=== PATIENT | female | born 1945 | race Caucasian/White ===

== ENCOUNTER 2019-01-23 08:40 | Emergency (ER) | payer OTHER, BC ==
[2019-01-23 08:45] VITALS: BMI 43.9
[2019-01-23] MEDS ORDERED: DIPHTH,PERTUSS(ACELL),TET 0.5 ML DISP.SYRIN IM ONE ×2 (09:49→09:57)
[2019-01-23] MEDS ORDERED: BACITRACIN 0.9 GM PACKET ONE (10:25)
[2019-01-23 10:39] LABS: BASO % 0.8 % (0-2.0); EOS % 1.8 % (0-4.5); HEMATOCRIT 38.7 % (32.4-45.2); HEMOGLOBIN 13.1 GM/dL (10.7-15.3); LYMPH % 11.7 % (8-40); MCHC 33.8 g/dl (32.0-36.0); MEAN CELL VOLUME 94.8 fl (80-96); MEAN PLT VOLUME 7.9 fl (7.5-11.1); MONO % 9.5 % (3.8-10.2); NEUT % 76.2 % (42.8-82.8); PLATELET COUNT 292 K/MM3 (134-434); RBC 4.08 M/mm3 (3.60-5.2); RDW 15.1 % (11.6-15.6); WHITE BLOOD COUNT 8.9 K/mm3 (4.0-10.0)
[2019-01-23 11:03] LABS: ALBUMIN 3.5 g/dl (3.4-5.0); ALK PHOS 133 U/L (45-117); ANION GAP 7 MMOL/L (8-16); BILIRUBIN,TOTAL 0.3 mg/dL (0.2-1); BLOOD UREA NITROGEN 14 mg/dL (7-18); CALCIUM 9.1 mg/dL (8.5-10.1); CHLORIDE 105 mmol/L (98-107); CO2 28 mmol/L (21-32); CREATININE 0.9 mg/dL (0.55-1.3); GLUCOSE,RANDOM 105 mg/dL (74-106); POTASSIUM 4.3 mmol/L (3.5-5.1); SGOT/AST 17 U/L (15-37); SGPT/ALT 23 U/L (13-61); SODIUM 139 mmol/L (136-145); TOT PROT 6.9 g/dl (6.4-8.2)
--- NOTE | 2019-01-23 11:21 | PDOC ---
History of Present Illness - General Chief Complaint: Wound Stated Complaint: EDEMA Time Seen by Provider: 01/23/19 08:55 History Source: Patient Exam Limitations: No Limitations - History of Present Illness Initial Comments: 01/23/19 11:07 73 yo F with h/o venous stasis varicose veins, h/o intermittent cellulitis here with concerns for cat bite or scratch happened day prior. state here right lower leg had some redness prior to getting bit or scratched. then yesterday states lost her footing accidently stepped on cat, and subsequently was bitten or scratched unsure of which. no f/c has been oozing clear fluid since as legs are chornically swollen. no pain. no redness spreading. states overall coloration of skin hasn't change post scratch and it was red prior. pcp dr hilton, pt tried to call but didnt get a call back. Past History - Past Medical History Allergies/Adverse Reactions: Allergies Allergy/AdvReac Type Severity Reaction Status Date / Time codeine [Codeine] AdvReac Mild GI UPSET Verified 01/23/19 08:46 Home Medications: Ambulatory Orders Amoxicillin/Potassium Clav [Augmentin 875-125 Tablet] 1 each PO BID #14 tablet 01/23/19 Ibuprofen 600 mg PO PRN 01/23/19 COPD: Yes CHF: No - Surgical History Abdominal Surgery: Yes (non-cancerous tumo removed) Appendectomy: Yes Cholecystectomy: Yes - Immunization History Immunization Up to Date: Yes - Suicide/Smoking/Psychosocial Hx Smoking Status: Yes Smoking History: Never smoked Have you smoked in the past 12 months: Yes Number of Cigarettes Smoked Daily: 20 'Breaking Loose' booklet given: 09/16/12 Hx Alcohol Use: Yes (are occassion) Drug/Substance Use Hx: No Substance Use Type: None Hx Substance Use Treatment: No Review of Systems - Review of Systems Respiratory: No: Cough, Orthopnea Cardiac (ROS): No: Chest Pain Integumentary: Yes: Erythema, Lesions, Other. No: Bruising Neurological: No: Headache, Numbness All Other Systems: Reviewed and Negative *Physical Exam - Vital Signs Last Vital Signs Temp Pulse Resp BP Pulse Ox 97.6 F 76 20 139/75 96 01/23/19 08:41 01/23/19 08:41 01/23/19 08:41 01/23/19 08:41 01/23/19 08:41 - Physical Exam Comments: 01/23/19 11:10 awake alert lungs clear bilaterally heart rrr no mrg abd soft nt nd.ext wwp no edema. no calf tenderness. skin right lower anterior christensen with mild erythema. no warmth. clear edematous oozing from small puncture wound on right side calf. 2 + dp / pt pulses. no streaking. no fluctuance, no crepitus ED Treatment Course - LABORATORY CBC & Chemistry Diagram: 01/23/19 10:15 01/23/19 10:15 - ADDITIONAL ORDERS Additional order review: Laboratory Results 01/23/19 10:15 Sodium 139 Potassium 4.3 Chloride 105 Carbon Dioxide 28 Anion Gap 7 L BUN 14 Creatinine 0.9 Creat Clearance w eGFR 61.21 Random Glucose 105 Calcium 9.1 Total Bilirubin 0.3 AST 17 ALT 23 Alkaline Phosphatase 133 H Total Protein 6.9 Albumin 3.5 01/23/19 10:15 RBC 4.08 MCV 94.8 MCHC 33.8 RDW 15.1 MPV 7.9 Neutrophils % 76.2 Lymphocytes % 11.7 D Monocytes % 9.5 Eosinophils % 1.8 Basophils % 0.8 - Medications Given in the ED: ED Medications Discontinued Medications Generic Name Dose Route Start Last Admin Trade Name Freq PRN Reason Stop Dose Admin Diphtheria/Tetanus/Acell Pertussis 0.5 ml 01/23/19 09:49 01/23/19 10:16 Boostrix - IM 01/23/19 09:50 0.5 ml .ONCE ONE Administration Medical Decision Making - Medical Decision Making 01/23/19 11:21 pt with cat bit, some erythema, with chronic skin changes that was there prior. draining clear edema fluid. gus start on augmentin, dc fu with dr spear. called dr spear to communicate, awaiting call back. 01/23/19 11:34 d/w nurse covering for dr spear. scheduled pt for followup Friday01/26/19 at 10:45 am *DC/Admit/Observation/Transfer Diagnosis at time of Disposition: Cat bite - Discharge Dispostion Disposition: HOME Condition at time of disposition: Good - Prescriptions Prescriptions: Amoxicillin/Potassium Clav [Augmentin 875-125 Tablet] 1 each PO BID #14 tablet - Referrals Referrals: Gregg Spear MD [Primary Care Provider] - - Patient Instructions Printed Discharge Instructions: DI for Edema Due to Venous Stasis, DI for Animal Bites Additional Instructions: you should elevate your legs asmuch as possible. use compression dressing on right leg, change daily. you shoul also use compression stockings. you will take augmentin ( amoxicillin - clavulinic acid) twice daily for one week to prevent infection from the cat bite. return for fever , worsening or spreading redness, thick yellow drainage or any concerns. you should follow up with dr Spear Friday at 10:45 am. We spoke to the nurse at their office to confirm. call to change time if this does not work for you return for any problems or concerns. - Post Discharge Activity
[2019-01-23] MEDS ORDERED: AMOX TR/POT CLAV 875MG/125MG TABLETS (FP) PO ONE (11:33)
[2019-01-23] MEDS ORDERED: AMOX TR/POT CLAV 875MG/125MG TABLETS (FP) ONE (11:36)
[2019-01-23 11:45] VITALS: BP 128/72; PULSE 73; TEMP 98.2
== END 2019-01-23 11:45 | disposition home or self-care (01) ==
LOC: JER 08:40
PROC: 3E0234Z Introduction of Serum, Toxoid and Vaccine into Muscle, Percutaneous Approach (ICD-10-PCS; principal; 2019-01-23)
DX: S81.851A Open bite, right lower leg, initial encounter (principal); W55.01XA Bitten by cat, initial encounter; Y93.89 Activity, other specified; Y92.038 Other place in apartment as the place of occurrence of the external cause; Y99.8 Other external cause status; I87.8 Other specified disorders of veins
CPT/HCPCS: 36415; 80053; 85025; 87040; 90471; 90715; 99282-25

== ENCOUNTER 2019-03-01 17:06 | Emergency (ER) | payer OTHER, BC | END 2019-03-01 20:53 | disposition home or self-care (01) | LOC: JER 17:06 ==

== ENCOUNTER 2019-11-17 23:42 | Emergency (ER) | payer OTHER, BC ==
[2019-11-18 00:15] VITALS: TEMP 97.9; BMI 41.1
--- NOTE | 2019-11-18 01:26 | PDOC ---
History of Present Illness - General Chief Complaint: Shortness of Breath Stated Complaint: SOB, HEADACHE, SWELLING IN FT Time Seen by Provider: 11/18/19 00:30 - History of Present Illness Initial Comments: HPI: 74yo F with PMH of BLE lymphedema, cellulitis, COPD, peripheral neuropathy presenting with worsening leg edema and shortness of breath. Patient states she has swollen legs at baseline, but this has worsened. She does not feel shortness of breath at rest, but will upon exertion. She now feels winded upon walking to the kitchen from her room which is unusual for her. Denies orthopnea or paroxysmal nocturnal dyspnea. Quit smoking several years ago. Denies cough. No hemoptysis, no recent surgical history, no recent immobilization, no hormone use, no history of DVT or PE. No fevers or chils. PCP: none (used to see Dr. Kearns) ROS: Constitutional: no fever, no chills HEENT: no throat pain, no dysphagia Cardiovascular: no chest pain, no palpitations Respiratory: no cough, +shortness of breath Gastrointestinal: no abdominal pain, no nausea Genitourinary: no dysuria, no hematuria Musculoskeletal: no myalgia, no arthralgia Skin: no rash, +edema Neurologic: no headache, no weakness Psych: no agitation, no anxiety PE: General: Awake, alert, and fully oriented, morbidly obese, in no acute distress Head: No signs of trauma Eyes: EOMI, sclera anicteric ENT: Moist mucus membranes Neck: Normal ROM, supple Lungs: Lungs clear, Normal breath sounds Cardio: Regular rhythm, S1 and S2 present Abdomen: Soft, nontender. No guarding, no rebound, no masses Extremities: Normal range of motion, Distal pulses present, 4+ pitting edema in lower extremities SKIN: Warm, Dry, normal turgor Neurologic: Cranial nerves II through XII grossly intact. Normal speech ED Course/MDM: DDX including but not limited to CHF, ACS, PE, PNA, anemia, metabolic derangement Labs, EKG, CXR EKG: rate 74, Qtc 435, NSR CBC WBC 8.6 K/mm3 (4.0-10.0) 11/18/19 01:30 RBC 4.20 M/mm3 (3.60-5.2) 11/18/19 01:30 Hgb 13.1 GM/dL (10.7-15.3) 11/18/19 01:30 Hct 39.4 % (32.4-45.2) 11/18/19 01:30 MCV 93.9 fl (80-96) 11/18/19 01:30 MCH 31.2 pg (25.7-33.7) 11/18/19 01:30 MCHC 33.2 g/dl (32.0-36.0) 11/18/19 01:30 RDW 14.8 % (11.6-15.6) 11/18/19 01:30 Plt Count 287 K/MM3 (134-434) 11/18/19 01:30 MPV 8.1 fl (7.5-11.1) 11/18/19 01:30 Absolute Neuts (auto) 5.4 K/mm3 (1.5-8.0) 11/18/19 01:30 Neutrophils % 62.7 % (42.8-82.8) 11/18/19 01:30 Lymphocytes % 24.7 % (8-40) 11/18/19 01:30 Monocytes % 9.6 % (3.8-10.2) 11/18/19 01:30 Eosinophils % 1.9 % (0-4.5) 11/18/19 01:30 Basophils % 1.1 % (0-2.0) 11/18/19 01:30 Nucleated RBC % 0 % (0-0) 11/18/19 01:30 No leukocytosis CMP Sodium 140 mmol/L (136-145) 11/18/19 01:30 Potassium 4.3 mmol/L (3.5-5.1) 11/18/19 01:30 Chloride 108 mmol/L (98-107) H 11/18/19 01:30 Carbon Dioxide 27 mmol/L (21-32) 11/18/19 01:30 Anion Gap 5 MMOL/L (8-16) L 11/18/19 01:30 BUN 27.2 mg/dL (7-18) H 11/18/19 01:30 Creatinine 1.2 mg/dL (0.55-1.3) 11/18/19 01:30 Est GFR (CKD-EPI)AfAm 51.20 11/18/19 01:30 Est GFR (CKD-EPI)NonAf 44.17 11/18/19 01:30 Random Glucose 122 mg/dL (74-106) H 11/18/19 01:30 Calcium 9.0 mg/dL (8.5-10.1) 11/18/19 01:30 Total Bilirubin 0.2 mg/dL (0.2-1) 11/18/19 01:30 AST 16 U/L (15-37) 11/18/19 01:30 ALT 24 U/L (13-61) 11/18/19 01:30 Alkaline Phosphatase 119 U/L (45-117) H 11/18/19 01:30 Creatine Kinase 106 U/L (26-192) 11/18/19 01:30 Troponin I < 0.02 ng/ml (0.00-0.05) 11/18/19 01:30 B-Natriuretic Peptide 108.2 pg/ml (5-450) 11/18/19 01:30 Total Protein 6.8 g/dl (6.4-8.2) 11/18/19 01:30 Albumin 3.4 g/dl (3.4-5.0) 11/18/19 01:30 Electrolytes unremarkable Normal Cr No transaminitis Tpn undetectable Normal BNP Plan for admission; observation is appropriate as patient with suspected anginal equivalent with nondiagnostic initial evaluation requiring further immediate evaluation such as stress testing, imaging, and repeat laboratory testing to clarify diagnosis Patient is of sound mind and has capacity to make decisions. Benefits/risks explained to patient and they voiced understanding. Patient decided to leave against medical advice stating that she wanted to go home. Planning to call her primary care office in the morning. Signed AMA form which was witnessed by nina. 11/18/19 03:12 Past History - Past Medical History Allergies/Adverse Reactions: Allergies Allergy/AdvReac Type Severity Reaction Status Date / Time codeine [Codeine] AdvReac Mild GI UPSET Verified 11/18/19 00:04 COPD: Yes CHF: No - Surgical History Abdominal Surgery: Yes (non-cancerous tumo removed) Appendectomy: Yes Cholecystectomy: Yes - Immunization History Immunization Up to Date: Yes - Psycho Social/Smoking Cessation Hx Smoking Status: Yes Smoking History: Never smoked Have you smoked in the past 12 months: No Number of Cigarettes Smoked Daily: 20 'Breaking Loose' booklet given: 09/16/12 Hx Alcohol Use: No Drug/Substance Use Hx: No Substance Use Type: None Hx Substance Use Treatment: No *Physical Exam - Vital Signs Last Vital Signs Temp Pulse Resp BP Pulse Ox 97.9 F 81 18 151/78 97 11/18/19 00:04 11/18/19 00:04 11/18/19 00:04 11/18/19 00:04 11/18/19 00:47 ED Treatment Course - LABORATORY CBC & Chemistry Diagram: 11/18/19 01:30 11/18/19 01:30 Discharge - Discharge Information Problems reviewed: Yes Clinical Impression/Diagnosis: Dyspnea on exertion Condition: Stable Disposition: AGAINST MEDICAL ADVICE - Follow up/Referral Referrals: [facility] [Provider Group] - Patient Discharge Instructions Patient Printed Discharge Instructions: DI for Shortness of Breath Additional Instructions: You came into the emergency department for chest pain. We performed blood work, an EKG, and an Xray which were within normal limits. Follow-up with your primary care doctor in the next 2-3 days to discuss this ED visit and to further evaluate your symptoms. Call and make an appointment at the number provided. Your workup is not complete until you do so. As discussed you may have undiagnosed illness or medical diagnosis that if left untreated can lead to multiple complications including, but not limited to permanent disability and . Should you reconsider you should return to the emergency department for evaluation. Call for emergency medicine services or go to the emergency room right away if you have symptoms of a heart attack, including: Chest pain, which may feel like a crushing weight A sense of fullness, squeezing, or pressure in the chest Rapid, irregular heartbeat Pain, tingling or numbness in the left shoulder and arm, the neck or jaw, or the right arm Sweating Nausea or vomiting Lightheadedness, weakness, or fainting Shortness of breath If you think you have an emergency, call for medical help right away. - Post Discharge Activity
[2019-11-18 01:51] LABS: BASO % 1.1 % (0-2.0); EOS % 1.9 % (0-4.5); HEMATOCRIT 39.4 % (32.4-45.2); HEMOGLOBIN 13.1 GM/dL (10.7-15.3); LYMPH % 24.7 % (8-40); MCH 31.2 pg (25.7-33.7); MCHC 33.2 g/dl (32.0-36.0); MEAN CELL VOLUME 93.9 fl (80-96); MEAN PLT VOLUME 8.1 fl (7.5-11.1); MONO % 9.6 % (3.8-10.2); NEUT % 62.7 % (42.8-82.8); PLATELET COUNT 287 K/MM3 (134-434); RDW 14.8 % (11.6-15.6); WHITE BLOOD COUNT 8.6 K/mm3 (4.0-10.0)
--- NOTE | 2019-11-18 01:58 | PDOC ---
Documentation entered by Maye Arnold SCRIBE, acting as scribe for Ru Smith MD. Ru Smith MD: This documentation has been prepared by the Catalina garibay Xhesika, SCRIBE, under my direction and personally reviewed by me in its entirety. I confirm that the documentation accurately reflects all work, treatment, procedures, and medical decision making performed by me. Attending Attestation - Resident Resident Name: LeonelaTrice - ED Attending Attestation I have performed the following: I have examined & evaluated the patient, The case was reviewed & discussed with the resident, I agree w/resident's findings & plan, Exceptions are as noted - HPI HPI: 11/18/19 01:44 The patient is a 74 year old female, with a significant PMH of venous stasis varicose veins, intermittent cellulitis, COPD, peripheral neuropathy, who presents to the emergency department for 3 weeks of lower extremity swelling and SOB. Pt reports dyspnea on exertion and feels winded while walking to the kitchen. The patient denies chest pain, headache and dizziness. Denies fever, chills, cough, nausea, vomiting, diarrhea and constipation. Denies dysuria, frequency, urgency and hematuria. Allergies: NKDA - Physicial Exam PE: 11/18/19 01:56 Patient is awake and alert, morbidly obese, in no significant distress Normocephalic and atraumatic PERRLA, EOMI No JVD CTA, distant breath sounds bilaterally RRR 4 pitting edema of the lower extremities bilaterally with mild extensive erythema+ - Medical Decision Making 11/18/19 01:57 Patient 74-year-old female with history of lymphedema, COPD, peripheral neuropathy presents with worsening lower extremity edema, dyspnea on exertion, weakness, malaise. Differential diagnosis includes acute COPD exacerbation versus CHF versus ACS. Will obtain chest x-ray, EKG, CBC/CMP/cardiac profile. Will reassess.
[2019-11-18 02:16] LABS: INR 0.97 (0.83-1.09); PROTHROMBIN TIME (PATIENT) 11.5 SEC (9.7-13.0)
[2019-11-18 02:26] LABS: ALBUMIN 3.4 g/dl (3.4-5.0); BILIRUBIN,TOTAL 0.2 mg/dL (0.2-1); BLOOD UREA NITROGEN 27.2 mg/dL (7-18); CREATININE 1.2 mg/dL (0.55-1.3); POTASSIUM 4.3 mmol/L (3.5-5.1); TOT PROT 6.8 g/dl (6.4-8.2)
[2019-11-18 03:23] VITALS: BP 121/71; PULSE 80
--- NOTE | 2019-11-18 14:13 | EKG ---
Test Reason : Blood Pressure : / mmHG Vent. Rate : 074 BPM Atrial Rate : 074 BPM P-R Int : 164 ms QRS Dur : 082 ms QT Int : 392 ms P-R-T Axes : 045 008 023 degrees QTc Int : 435 ms NORMAL SINUS RHYTHM LOW VOLTAGE QRS BORDERLINE ECG WHEN COMPARED WITH ECG OF 16-SEP-2012 10:47, T WAVE AMPLITUDE HAS DECREASED IN ANTERIOR LEADS Confirmed by EFREM LU MD ([id number]) on 11/18/2019 2:12:53 PM Referred By: Confirmed By:EFREM LU MD
== END 2019-11-18 03:23 | disposition left against medical advice (07) ==
LOC: JER 23:42
DX: R06.09 Other forms of dyspnea (principal); I89.0 Lymphedema, not elsewhere classified; I83.893 Varicose veins of bilateral lower extremities with other complications; J44.9 Chronic obstructive pulmonary disease, unspecified; G62.9 Polyneuropathy, unspecified; Z88.5 Allergy status to narcotic agent
CPT/HCPCS: 36415; 71045-TC-FY; 80053; 82550; 83880; 84484; 85025; 85610; 93005; 93010; 99285-25

== ENCOUNTER 2020-05-15 17:04 | Inpatient (IN) | payer OTHER, BC ==
--- NOTE | 2020-05-15 17:31 | PDOC ---
Rapid Medical Evaluation Time Seen by Provider: 05/15/20 17:30 Medical Evaluation: Allergies Allergy/AdvReac Type Severity Reaction Status Date / Time codeine [Codeine] AdvReac Mild GI UPSET Verified 11/18/19 00:04 05/15/20 17:30 I have performed a brief in-person evaluation of this patient. The patient presents with a chief complaint of:sob x days. Dx w/ pna on cxr w/ wbc 14 and 94% on RA per records from [facility]. H/o COPD. No cough, CP, f/c Pertinent physical exam findings: I have ordered the following:ekg/cxr/labs The patient will proceed to the ED for further evaluation. Discharge Disposition - Diagnosis SOB (shortness of breath) - Referrals Referrals: Giorgio Mueller MD [Primary Care Provider] - - Patient Instructions - Post Discharge Activity
--- NOTE | 2020-05-15 19:06 | PDOC ---
History of Present Illness - General Chief Complaint: Shortness of Breath Stated Complaint: SOB/SENT BY PCP Time Seen by Provider: 05/15/20 17:30 History Source: Patient Exam Limitations: No Limitations - History of Present Illness Initial Comments: 05/15/20 19:02 Mirella Shoemaker is a 74F with PMH COPD not on home O2, chronic lymphedema, peripheral neuropathy on gabapentin, sent from PMD at [facility] for evaluation of PNA with WBC 14 and hypoxia. Two days ago patient reports that she was having urinary frequency and was going to the bathroom to urinate every few hours overnight. Symptoms resolved the next day, does not take any diuretics. Today patient was having SOB with exertion, sat in in chair and felt better, daughter brought to urgent care where she was diagnosed with PNA, WBC 14, SpO2 sent to [facility] for evaluation of hypoxia. Patient denies any chest pain, SOB, palpitations, fever, chills, nausea, vomiting, diarrhea. Has leg swelling but at baseline. No known covid contacts or sick contacts. No coughing. Patient denies any lung disease. Evaluated by [facility] cardiology for ECHO, no heart disease noted. NDKA. [facility] cholecystectomy Denies alcohol/drugs/tobacco Past History - Medical History Allergies/Adverse Reactions: Allergies Allergy/AdvReac Type Severity Reaction Status Date / Time codeine [Codeine] AdvReac Mild GI UPSET Verified 05/15/20 18:41 COPD: Yes CHF: No - Surgical History Abdominal Surgery: Yes (non-cancerous tumo removed) Appendectomy: Yes Cholecystectomy: Yes - Reproductive History Is Patient Now?: No - Immunization History Immunization Up to Date: Yes - Psycho-Social/Smoking History Smoking Status: Yes Smoking History: Never smoked Have you smoked in the past 12 months: No Number of Cigarettes Smoked Daily: 20 Information on smoking cessation initiated: No 'Breaking Loose' booklet given: 09/16/12 - Substance Abuse Hx (Audit-C & DAST Scrn) How often the patient has a drink containing alcohol: Never Score: In Men: 4 or > Positive; In Women: 3 or > Positive: 0 Screen Result (Pos requires Nsg. Audit-10AR): Negative In the last yr the pt used illegal drug/Rx for NonMed reason: No Score: Yes response is considered Positive: 0 Screen Result (Positive result requires Nsg. DAST-10): Negative Review of Systems - Review of Systems Able to Perform ROS?: Yes Constitutional: No: Symptoms Reported HEENTM: No: Symptoms Reported Respiratory: Yes: Shortness of Breath, SOB with Exertion. No: SOB at Rest Cardiac (ROS): No: Edema, Irregular Heart Rate, Lightheadedness, Palpitations, Syncope ABD/GI: No: Symptoms Reported : Yes: Frequency. No: Burning Musculoskeletal: No: Symptoms Reported Integumentary: No: Symptoms Reported Neurological: No: Symptoms reported Endocrine: No: Symptoms Reported Hematologic/Lymphatic: No: Symptoms Reported All Other Systems: Reviewed and Negative *Physical Exam - Vital Signs Last Vital Signs Temp Pulse Resp BP Pulse Ox 98 F 79 16 115/85 100 05/15/20 18:30 05/15/20 18:30 05/15/20 18:30 05/15/20 18:30 05/15/20 18:30 - Physical Exam General Appearance: Yes: Nourished, Appropriately Dressed, Obese, Other (in good spirits, in NAD). No: Apparent Distress HEENT: positive: EOMI, KAREY, Normal Voice, Symmetrical, Pharynx Normal, Hearing Grossly Normal. negative: Scleral Icterus (R), Scleral Icterus (L), Pharyngeal Erythema, Tonsillar Exudate, Tonsillar Erythema, Hearing Decreased Neck: positive: Trachea midline, Normal Thyroid, Supple. negative: Tender, Lymphadenopathy (R), Lymphadenopathy (L), Tender lateral, Tender midline Respiratory/Chest: positive: Lungs Clear, Normal Breath Sounds, Other (satting 100% on RA and speaking in full sentences). negative: Chest Tender, Respiratory Distress, Accessory Muscle Use, Labored Respiration, Crackles, Rales, Rhonchi, Stridor, Wheezing Cardiovascular: positive: Regular Rhythm, Regular Rate. negative: Murmur, Tachycardia Gastrointestinal/Abdominal: positive: Soft, Distended, Other. negative: Normal Bowel Sounds, Tender, Organomegaly, Pulsatile Mass, Hernia, Mass Musculoskeletal: positive: Normal Inspection. negative: CVA Tenderness, Decreased Range of Motion, Vertebral Tenderness Extremity: positive: Normal Capillary Refill, Normal Inspection, Normal Range of Motion, Pelvis Stable, Pedal Edema (2+), Swelling (2+), Calf Tenderness. negative: Tender, Erythema, Inflammation Integumentary: positive: Normal Color, Dry, Warm Neurologic: positive: Fully Oriented, Alert, Normal Mood/Affect, Normal Response, Motor Strength 5/5 ED Treatment Course - LABORATORY CBC & Chemistry Diagram: 05/15/20 19:00 05/15/20 19:00 Medical Decision Making - Medical Decision Making 05/15/20 19:04 Patient has known history of COPD, [facility] for hypoxia, elevated WBC, and PNA. Patient is satting 100% on RA here and denies all symptoms. Has BLE edema but this is chronic, but given SOB concerned for CHF exacerbation. Ddx also includes COPD vs. PNA vs. ACS vs. covid-19 infection. Repeat CXR at bedside does not show focal infiltrate, more consistent with pulmonary edema. ECG shows NSR with low voltage, HR 73, QTc 405, no concerning LINDA/D or TWI. Ordering CBC/CMP/CP/BNP/ECG/CXR/UA/UC for evaluation of urinary frequency. 05/15/20 20:39 Labs notable for: - BNP 1300 - WBC 12.7 - CMP WNL Patient is visibly tired when walking and SOB, but saturation improves back to 98% on RA on monitor. No persistent hypoxia, no need for BiPAP or intubation. Giving 20mg IV Lasix for diuresis and will admit to TELE for new onset CHF exacerbation. 05/15/20 21:[address] Boggs with admitting team, accepts for admission, stable enough for Med Surg. Getting UA and UC. Discharge - Discharge Information Problems reviewed: Yes Clinical Impression/Diagnosis: SOB (shortness of breath) CHF (congestive heart failure) Qualifiers: Heart failure type: unspecified Heart failure chronicity: acute Qualified Code(s): I50.9 - Heart failure, unspecified Condition: Stable - Admission Yes - Follow up/Referral Referrals: Giorgio Mueller MD [Primary Care Provider] - - Patient Discharge Instructions - Post Discharge Activity
[2020-05-15 19:15] LABS: BASO % 0.6 % (0-2.0); HEMATOCRIT 36.5 % (32.4-45.2); HEMOGLOBIN 11.8 GM/dL (10.7-15.3); LYMPH % 8.1 % (8-40); MCHC 32.3 g/dl (32.0-36.0); MEAN CELL VOLUME 92.9 fl (80-96); MEAN PLT VOLUME 8.1 fl (7.5-11.1); NEUT % 82.3 % (42.8-82.8); PLATELET COUNT 257 K/MM3 (134-434); RBC 3.93 M/mm3 (3.60-5.2); WHITE BLOOD COUNT 12.7 K/mm3 (4.0-10.0)
[2020-05-15 19:45] LABS: ALBUMIN 3.2 g/dl (3.4-5.0); ALK PHOS 99 U/L (45-117); ANION GAP 9 MMOL/L (8-16); BILIRUBIN,TOTAL 0.6 mg/dL (0.2-1); BLOOD UREA NITROGEN 16.1 mg/dL (7-18); CALCIUM 8.5 mg/dL (8.5-10.1); CHLORIDE 105 mmol/L (98-107); CO2 26 mmol/L (21-32); GLUCOSE,RANDOM 122 mg/dL (74-106); POTASSIUM 3.5 mmol/L (3.5-5.1); SGOT/AST 24 U/L (15-37); SGPT/ALT 24 U/L (13-61); SODIUM 141 mmol/L (136-145); TOT PROT 6.2 g/dl (6.4-8.2)
[2020-05-15 20:33] LABS: MAGNESIUM 2.2 mg/dL (1.8-2.4); N-TERMINAL BNP 1265.7 pg/ml (5-450)
[2020-05-15] MEDS ORDERED: FUROSEMIDE 40 MG/4 ML INJECTABLE VIAL IVPUSH ONE (20:38)
[2020-05-15] MEDS ORDERED: FUROSEMIDE 40 MG/4 ML INJECTABLE VIAL ONE (20:47)
--- NOTE | 2020-05-15 21:11 | PDOC ---
Documentation entered by Maye Arnold SCRIBE, acting as scribe for Vasiliy Montiel DO. Vasiliy Montiel DO: This documentation has been prepared by the Catalina garibay Xhesika, SCRIBE, under my direction and personally reviewed by me in its entirety. I confirm that the documentation accurately reflects all work, treatment, procedures, and medical decision making performed by me. Attending Attestation - Resident Resident Name: Ino Rodarte - ED Attending Attestation I have performed the following: I have examined & evaluated the patient, The case was reviewed & discussed with the resident, I agree w/resident's findings & plan - HPI HPI: 05/15/20 19:38 see resident HPI - Physicial Exam PE: 05/15/20 19:39 Agree with resident exam - Medical Decision Making 05/15/20 19:02 74y/o F with COPD who presents with worsening orthopnea and Miller. Denies associated chest pain. Pt was sent for questionable PNA on CXR PE: normal other than LE edema 2+ crackles R>L well appearing, no distress speaking Full sentences A/P: 74y/o F with COPD who presents with worsening Orthopnea and MILLER. Will evaluate for CHF vs COPD exacerbation with underlying PNA cxr to r/o PNA give lasix EKG performed at 19:25. NSR @ 73. normal axis and intervals. no acute ischemia. low voltage 05/26/20 17:31 Admitted for further eval Discharge - Discharge Information Problems reviewed: Yes Clinical Impression/Diagnosis: SOB (shortness of breath) CHF (congestive heart failure) Qualifiers: Heart failure type: unspecified Heart failure chronicity: acute Qualified Code(s): I50.9 - Heart failure, unspecified Condition: Stable Disposition: HOME - Follow up/Referral - Patient Discharge Instructions - Post Discharge Activity
--- NOTE | 2020-05-15 21:33 | HP ---
CHIEF COMPLAINT: PCP: Jac HISTORY OF PRESENT ILLNESS: Patient is is a 74F with PMH of ?COPD not on home O2, chronic lymphedema, peripheral neuropathy on gabapentin. Patient is said to have been referred from [facility] following diagnosis with PNA, WBC 14, SpO2 sent to [facility] for evaluation of hypoxia. She is now c/o shortness of breath(SOB) on exertion x 2days duration, was of gradual onset but later progressed to orthopnea and has been stable since then.There is no associated cough, chest pain, palpitations, wheezing, prolonged cough, hemoptysis or hematemesis. Patient denies any chest pain, SOB, palpitations, fever, chills, nausea, vomiting, diarrhea. Has leg swelling but at baseline. No known covid contacts or sick contacts. She is also experiencing urinary frequency, urgency and incontinence. Had 2 episodes of frequency+ urgency and 1 incontinence during my review. She denies hx of CHF or home use oxygen therapy. (1)Frusemide 20mg IVP (2) (3) Recent Travel: None PAST SURGICAL HISTORY: Kidney lithotripsy, cholecystectomy, appendectomy and non cancerous abdominal tumor Social History: Smoking:None Alcohol:None Drugs:None Allergies: Codeine with GI UPSET HOME MEDICATIONS: Gabapentin REVIEW OF SYSTEMS Negative except as above Vital Signs - 24 hrs 05/15/20 18:30 Temperature 98 F Pulse Rate 79 Respiratory 16 Rate Blood Pressure 115/85 O2 Sat by Pulse 100 Oximetry (%) PHYSICAL EXAMINATION GENERAL: Awake, alert, and fully oriented, disturbed by urinary frequency and urgency HEAD: Normal with no signs of trauma. NECK: Normal range of motion, supple without lymphadenopathy, no masses. LUNGS: Crackles in b/l lower lobes HEART: JVD raised. S1 and S2 RRR. S3 present. ABDOMEN: Soft, distended, surgical scar in RLQ. No tenderness or guarding. No hepatomegaly. MUSCULOSKELETAL: No CVA tenderness. UPPER EXTREMITIES: LOWER EXTREMITIES: B/L lymphedema up to knee, mildly tender NEUROLOGICAL: Cranial nerves II-XII intact. Normal speech. PSYCHIATRIC: Cooperative. Good eye contact. Disturbed mood and affect. SKIN: Lymphedema of B/L with overlying maculopapular skin lesion Laboratory Results - last 24 hr 05/15/20 05/15/20 19:00 19:00 WBC 12.7 H RBC 3.93 Hgb 11.8 Hct 36.5 MCV 92.9 MCH 30.0 MCHC 32.3 RDW 15.0 Plt Count 257 MPV 8.1 Absolute Neuts (auto) 10.4 H Neutrophils % 82.3 D Lymphocytes % 8.1 D Monocytes % 9.0 Eosinophils % 0.0 D Basophils % 0.6 Nucleated RBC % 0 Sodium 141 Potassium 3.5 Chloride 105 Carbon Dioxide 26 Anion Gap 9 BUN 16.1 Creatinine 1.0 Est GFR (CKD-EPI)AfAm 63.82 Est GFR (CKD-EPI)NonAf 55.07 Random Glucose 122 H Calcium 8.5 Magnesium 2.2 Total Bilirubin 0.6 AST 24 ALT 24 Alkaline Phosphatase 99 Creatine Kinase 272 H Creatine Kinase Index 0.9 CK-MB (CK-2) 2.5 Troponin I < 0.02 B-Natriuretic Peptide 1265.7 H Total Protein 6.2 L Albumin 3.2 L ASSESSMENT/PLAN: Patient is is a 74F with PMH of ?COPD not on home O2, chronic lymphedema, peripheral neuropathy on gabapentin. Patient is said to have been referred from [facility] following diagnosis with PNA, WBC 14, SpO2 sent to [facility] for evaluation of hypoxia. She is now c/o shortness of breath(SOB) on exertion x 2days duration, was of gradual onset but later progressed to orthopnea and has been stable since then. #CHF Exacerbation 2/2 COPD R/O Atypical pneumonia AND COVID-19 infection: -CXR shows cardiomegaly with increased interstitial markings Pulmonary vascular congestion. -Oxygen saturation was 100% on room air. -EKG shows NSR at 73/minute and QTc [address]-T wave changes. -Initial troponin is negative. -Urinalysis -CTA chest, b/l Lower limb doppler -ECHO -Strict I/O and adjust dose of IV lasix prn to achieve adequate diuresis -Restrict dietary salt intake, monitor renal function, monitor and replete electrolytes -Daily weight. -Consult Cardiology. -Blood cultures X 2 samples, then treat patient with IV Ceftriaxone and Azithromycin -Consult ID. -Viral testing for COVID-19 ordered; result pending and patient placed on airborne, droplet and contact isolation. -Educate patient on importance of medication compliance. #UNCOMPLICATED CYSTITIS: -Urinary frequency -UA: Leucocyst Esterase 3+, Protein 2+, Blood 2+ -Continue Ceftriaxone and Azithromycin. -Am team to adjust antibiotics prn depending on Urine culture result #Hypoalbuminemia: -Possibly due to combined effects of malnutrition and inflammation associated with comorbid conditions. -Educate patient on healthy sources of dietary protein intake -Consult porcelain mixer. -F/U pending Urinalysis #MORBID OBESITY: -Counseled on health risk associated with obesity. -Will provide patient all the necessary assistance, counseling and positive reinforcement to facilitate weight loss -Consult porcelain mixer. #FEN: -Monitor and replete electrolyte prn -Diabetic diet #DISPOSITION: -Admit to telemetry -DVT prophylaxis - Lovenox 40 mg SQ bid since BMI > 40. -Advance directives - Full code Family Medical History Family History: As Documented Visit type - Medication Review Med list reviewed for High Risk Meds patients 65 and older: Yes - Emergency Visit Emergency Visit: Yes ED Registration Date: 05/15/20 Care time: The patient presented to the Emergency Department on the above date and was hospitalized for further evaluation of their emergent condition. - New Patient This patient is new to me today: Yes Date on this admission: 05/15/20 - Critical Care Critical Care patient: No ATTENDING PHYSICIAN STATEMENT I saw and evaluated the patient. I reviewed the resident's note and discussed the case with the resident. I agree with the resident's findings and plan as documented. SUBJECTIVE: OBJECTIVE: ASSESSMENT AND PLAN:
--- NOTE | 2020-05-15 21:45 | PN ---
Teaching Attending Note Name of Resident: Flaco Acevedo ATTENDING PHYSICIAN STATEMENT I saw and evaluated the patient. I reviewed the resident's note and discussed the case with the resident. I agree with the resident's findings and plan as documented. SUBJECTIVE: Patient is a 74 year old woman with a PMH of COPD (not on home O2), Chronic lymphedema, Peripheral neuropathy and Cholecystectomy sent from PMD at [facility] for evaluation of PNA with WBC 14 and hypoxia. Patient reports that she was having urinary frequency two days ago and was going to the bathroom to urinate every few hours overnight. Symptoms resolved the next day. Not on any diuretics. Today patient was having SOB with exertion, sat in in chair and felt better, daughter brought her to Urgent care where she was diagnosed with PNA, WBC 14, low O2 saturation sent to [facility] for evaluation of hypoxia. Has leg swelling but at baseline. Patient denies any chest pain, palpitations, fever, chills, nausea, vomiting, diarrhea or coughing. Evaluated by [facility] Cardiology with ECHO - no heart disease noted. Patient denies dysuria, melena, hematochezia or hematuria. Denies alcohol, tobacco or illicit drug use. No sick contacts or recent travels. Family history is unremarkable. OBJECTIVE: Alert Vital Signs Period Temp Pulse Resp BP Sys/Sims Pulse Ox Last 24 Hr 98 F 79 16 115/85 100 HEENT: No Jaundice, eye redness or discharge, PERRLA, EOMI. Normocephalic, atraumatic. External ears are normal and hearing is grossly intact. No nasal discharge. Neck: Supple, nontender. No palpable adenopathy or thyromegaly. No JVD Chest: Good effort. Clear to auscultation and percussion. Heart: Regular. No S3, rub or murmur Abdomen: Not distended, soft, nontender and no HSM. No rebound or guarding. Normal bowel sounds. Ext: Peripheral pulses intact. Chronic bilateral leg lymphedema. Skin: Warm and dry. No petechiae, rash or ecchymosis. Neuro: Alert. Oriented x3. CN 2-12 grossly intact. Sensation grossly intact in all four extremities and DTR are symmetric. Psych: Appropriate mood and affect. Good insight. Abnormal Lab Results 05/15/20 05/15/20 19:00 19:00 WBC 12.7 H Absolute Neuts (auto) 10.4 H Random Glucose 122 H Creatine Kinase 272 H B-Natriuretic Peptide 1265.7 H Total Protein 6.2 L Albumin 3.2 L Home Medications Medication Instructions Recorded Gabapentin [Gralise] 1,200 mg PO HS 05/15/20 Current Medications Generic Name Dose Route Start Last Admin Trade Name Freq PRN Reason Stop Dose Admin Enoxaparin Sodium 40 mg 05/16/20 10:00 Lovenox - SQ BID BOBBY Furosemide 20 mg 05/16/20 10:00 Lasix Injection - IVPUSH DAILY BOBBY Non-Formulary Medication 1,200 mg 05/16/20 22:00 Gabapentin [Gralise] PO HS [facility] ASSESSMENT AND PLAN: 1. CHF Exacerbation/Atypical pneumonia/Rule out COVID-19 infection - CXR shows cardiomegaly with increased interstitial markings - ?pulmonary vascular congestion. Oxygen saturation on room air was not documented. EKG shows NSR at 73/minute and QTc [address]-T wave changes. Initial troponin is negative. Will get urinalysis stat, CTA chest, leg doppler, admit to telemetry, treat with escalating doses of IV Lasix to achieve adequate diuresis, get ECHO, restrict dietary salt intake, monitor renal function, monitor and replete electrolytes, get daily weight and consult Cardiology. Will do blood cultures and treat patient with IV Ceftriaxone and Azithromycin and consult ID. Viral testing for COVID-19 ordered and patient placed on airborne, droplet and contact isolation. Will continue comprehensive care for all of patients comorbid conditions. 2. Hypoalbuminemia - Possibly due to combined effects of malnutrition and inflammation associated with comorbid conditions. Will ensure adequate dietary protein intake and also consult agricultural sciences professor. Urinalysis pending. 3. Morbid obesity Counseled on the risks associated with obesity. Will provide patient all the necessary assistance, counseling and positive reinforcement to facilitate weight loss. Consult agricultural sciences professor. 4. DVT prophylaxis - Lovenox 40 mg SQ q 12 hours. 5. Advance directives - Full code
[2020-05-15] MEDS ORDERED: INSULIN SLIDING SCALE (NOVOLOG) 1 VIAL SQ SCH (22:00)
[2020-05-15] MEDS ORDERED: ENOXAPARIN NA (PORCINE) 40 MG/0.4 ML DISP.SYRIN SQ SCH (22:00)
[2020-05-16 00:28] LABS: PH,URINE 6.5 (5.0-8.0); URINE APPEARANCE Clear; URINE BILIRUBIN Negative (NEGATIVE); URINE COLOR Yellow; URINE GLUCOSE (UA) Negative (NEGATIVE); URINE KETONE Negative (NEGATIVE); URINE LEUK ESTERASE 3+ (NEGATIVE); URINE NITRITE Negative (NEGATIVE); URINE PROTEIN 2+ (NEGATIVE)
[2020-05-16] MEDS ORDERED: CEFTRIAXONE 1 GM in DEXTROSE 5%-WATER - 50 ML IVPB ONE (01:33)
[2020-05-16 01:40] LABS: EPI CELLS 15.6 /uL (0-25.1); HYALINE CASTS 1.54 /uL (0-3.1); URINE BACTERIA 7736.2 /uL (0-1359); URINE RBC 194.7 /uL (0-23.9); URINE WBC 1662.8 /uL (0-25.8)
[2020-05-16] MEDS ORDERED: CEFTRIAXONE 1 GM/50 ML BAG ONE (03:41)
[2020-05-16] MEDS: ACETAMINOPHEN 325 MG TABLET (FP) PO PRN (04:00)
[2020-05-16 07:10] LABS: HEMOGLOBIN 11.3 GM/dL (10.7-15.3); MCH 30.7 pg (25.7-33.7); MCHC 33.3 g/dl (32.0-36.0); MEAN PLT VOLUME 8.7 fl (7.5-11.1); PLATELET COUNT 231 K/MM3 (134-434); RDW 14.8 % (11.6-15.6); WHITE BLOOD COUNT 10.7 K/mm3 (4.0-10.0)
[2020-05-16 07:25] LABS: BILIRUBIN,TOTAL 0.5 mg/dL (0.2-1); BLOOD UREA NITROGEN 14.1 mg/dL (7-18); CALCIUM 8.4 mg/dL (8.5-10.1); MAGNESIUM 2.1 mg/dL (1.8-2.4); PHOSPHOROUS 2.6 mg/dL (2.5-4.9); POTASSIUM 3.1 mmol/L (3.5-5.1)
--- NOTE | 2020-05-16 09:08 | EKG ---
Test Reason : Blood Pressure : / mmHG Vent. Rate : 073 BPM Atrial Rate : 073 BPM P-R Int : 160 ms QRS Dur : 086 ms QT Int : 368 ms P-R-T Axes : 070 062 012 degrees QTc Int : 405 ms NORMAL SINUS RHYTHM LOW VOLTAGE QRS CANNOT RULE OUT ANTERIOR INFARCT , AGE UNDETERMINED ABNORMAL ECG WHEN COMPARED WITH ECG OF 18-NOV-2019 01:55, NO SIGNIFICANT CHANGE WAS FOUND Confirmed by Les Hernandez MD ([id number]) on 05/16/2020 9:08:12 AM Referred By: Confirmed By:Les Hernandez MD
[2020-05-16] MEDS ORDERED: ALBUTEROL SO4 HFA INHALER IH PRN (09:57)
[2020-05-16] MEDS ORDERED: FUROSEMIDE 40 MG/4 ML INJECTABLE VIAL IVPUSH SCH (10:00)
[2020-05-16] MEDS ORDERED: AZITHROMYCIN IVPB 500 MG in DEXTROSE 5%-WATER - 250 ML IVPB SCH (10:00)
[2020-05-16] MEDS: FUROSEMIDE 40 MG/4 ML INJECTABLE VIAL IVPUSH SCH (10:05)
[2020-05-16] MEDS: ENOXAPARIN NA (PORCINE) 40 MG/0.4 ML DISP.SYRIN SQ SCH ×2 (10:05→21:11)
[2020-05-16] MEDS ORDERED: AZITHROMYCIN IVPB 500 MG/250 ML BAG IVPB SCH (10:41)
--- NOTE | 2020-05-16 16:31 | CON.CARD ---
Consult Consult Specialty:: cardiology Reason for Consultation:: dyspnea on exertion - History of Present Illness Chief Complaint: Pt A&Ox3; feels better; no dyspnea at rest History of Present Illness: Ms. Shoemaker is a 74 yr old white woman with PMH COPD--former smoker, not on home O2, morbid obesity, chronic bilateral LE lymphedema/cellulitis, peripheral neuropathy on gabapentin, sent from PMD at [facility] for evaluation of PNA with WBC 14 and hypoxia. Two days ago patient reports that she was having urinary frequency and was going to the bathroom to urinate every few hours overnight. Symptoms resolved the next day, does not take any diuretics. Today patient was having SOB with exertion. Patient denies any chest pain, SOB, palpitations, fever, chills, nausea, vomiting, diarrhea. Has leg swelling but at baseline. No known covid contacts or sick contacts. No coughing. Patient denies any lung disease. Evaluated by [facility] cardiology for ECHO, no heart disease noted. Pt smoked cigarettes for many years (1/2 ppd; quit 3 yrs ago). - History Source History Provided By: Patient, Medical Record Limitations to Obtaining History: No Limitations - Past Medical History Cardio/Vascular: Yes: CHF, HTN, Hyperlipdemia Pulmonary: Yes: COPD. No: Asthma Renal/: Yes: Renal Failure. No: Renal Inusuff Reproductive: Yes: Postmenopausal ...LMP: 05/15/20 ...: No - Alcohol/Substance Use Hx Alcohol Use: No - Smoking History Smoking history: Former smoker Have you smoked in the past 12 months: No Aproximately how many cigarettes per day: 20 If you are a former smoker, when did you quit?: 2017 Home Medications - Allergies Allergies/Adverse Reactions: Allergies Allergy/AdvReac Type Severity Reaction Status Date / Time codeine [Codeine] AdvReac Mild GI UPSET Verified 05/15/20 18:41 - Home Medications Home Medications: Ambulatory Orders Gabapentin [Gralise] 300 mg PO HS 05/15/20 Gabapentin Enacarbil [Horizant] 1,200 mg PO HS 05/16/20 Albuterol Sulfate Inhaler - [Ventolin HFA Inhaler -] 2 puff IH Q4H PRN #1 inhaler 05/18/20 Atorvastatin Ca [Lipitor] 20 mg PO HS #90 tablet 05/18/20 Cefuroxime Axetil [Ceftin -] 500 mg PO BID #10 tablet 05/18/20 Furosemide [Lasix -] 20 mg PO DAILY #120 tablet 05/18/20 Gabapentin [Neurontin -] 1,200 mg PO HS capsule 05/18/20 Melatonin 5 mg PO HS PRN tab 05/18/20 Family Medical History Family History: Denies Review of Systems - Review of Systems Constitutional: reports: Weakness Eyes: reports: No Symptoms HENT: reports: No Symptoms Neck: reports: No Symptoms Cardiovascular: reports: Shortness of Breath Respiratory: reports: SOB Gastrointestinal: reports: No Symptoms Genitourinary: reports: No Symptoms Breasts: reports: No Symptoms Reported Musculoskeletal: reports: Joint Swelling (bilateral knees), Muscle Weakness Neurological: reports: Weakness Endocrine: reports: No Symptoms Psychiatric: reports: Anxiety - Risk Factors Known Risk Factors: Yes: Age, Hypercholesterolemia, Hypertension, Physical Inactivity, Smoking (former; COPD) Vital Signs: Vital Signs Temperature 99.7 F H 05/16/20 13:00 Pulse Rate 70 05/16/20 13:00 Respiratory Rate 20 05/16/20 13:00 Blood Pressure 132/78 05/16/20 13:00 O2 Sat by Pulse Oximetry (%) 93 L 05/16/20 14:55 Constitutional: Yes: Anxious, Obese Eyes: Yes: WNL HENT: Yes: WNL Neck: Yes: WNL Respiratory: Yes: Diminished Gastrointestinal: Yes: Soft, Abdomen, Obese Renal/: No: Anuria Heart Sounds: Yes: S1, S2, S4 Murmur: Yes: Systolic Murmur, Grade 1 Musculoskeletal: Yes: Joint Stiffness, Muscle Weakness Extremities: Yes: Cool, Erythema Edema: Yes Edema: LLE: 2+, RLE: 2+ Peripheral Pulses WNL: Yes Integumentary: Yes: Erythema, Venous Stasis Changes Neurological: Yes: Alert, Oriented Psychiatric: Yes: Alert, Oriented, Other (anxiety) - Other Data Labs, Other Data: CBC, BMP 05/16/20 05:40 05/16/20 05:40 Troponin, BNP 05/15/20 19:00 Troponin I < 0.02 B-Natriuretic Peptide 1265.7 H Troponin, BNP 05/15/20 19:00 Troponin I < 0.02 B-Natriuretic Peptide 1265.7 H Abnormal Lab Results 05/18/20 05/18/20 08:17 08:17 Monocytes % 19.2 H Potassium 3.0 L Magnesium 2.7 H Total Protein 6.1 L Albumin 2.8 L Imaging - Results Chest X-ray: Image Reviewed EKG: Image Reviewed Assessment/Plan Shortness of breath; PNA; leukocytosis COPD morbid obesity HTN (pt says she is on no medications for any illness at home) Hypokalemia Hx UTI EKG: NSR; ? old anterior RI Plan: COVID negative. ECHO for LVEF, wall thickness and motion, valve status. Replete K+. TNI < 0.02; f/u serially. F/u lipids, TSH, HGBA1c F/u BP serially. Consider pulmonary w/u regarding COPD, long smoking hx. Pt does not want nutrition consult, saying she knows what she needs to do. Stress MIBI when stable.
--- NOTE | 2020-05-16 17:22 | PN ---
Physical Exam: SUBJECTIVE: Patient seen and examined at the bedside. dyspnea has improved. no chest pain. OBJECTIVE: Patient is is a 74 year old female with a significant past medical history of COPD (not on home O2) chronic lymphedema, peripheral neuropathy. Patien sent by PCP to [facility] for evaluation of hypoxia. She c/o shortness of breath on exertion x 2 days duration, was of gradual onset but later progressed to orthopnea Patient denies any chest pain, SOB, palpitations, fever, chills, nausea, vomiting, diarrhea. She is also experiencing urinary frequency, urgency and incontinence. Had 2 episodes of frequency+ urgency, UA +. UC not yet collected. She denies hx of CHF or home use oxygen therapy. Vital Signs Period Temp Pulse Resp BP Sys/Sims Pulse Ox Last 24 Hr 97.8 F-101 F 70-79 16-22 115-157/67-85 92-100 = GENERAL: The patient is awake, alert, and fully oriented, in no acute distress. HEAD: Normal with no signs of trauma. EYES: PERRL, extraocular movements intact, sclera anicteric, conjunctiva clear. No ptosis. ENT: Ears normal, nares patent, oropharynx clear without exudates NECK: Trachea midline, full range of motion, supple. LUNGS: Breath sounds equal, clear to auscultation bilaterally HEART: Regular rate and rhythm, ABDOMEN: Soft, nontender, nondistended, normoactive bowel sounds EXTREMITIES: +2 edema bilaterally LE NEUROLOGICAL: Normal speech, gait not observed. Laboratory Results - last 24 hr 05/15/20 05/15/20 05/15/20 19:00 19:00 19:00 WBC 12.7 H RBC 3.93 Hgb 11.8 Hct 36.5 MCV 92.9 MCH 30.0 MCHC 32.3 RDW 15.0 Plt Count 257 MPV 8.1 Absolute Neuts (auto) 10.4 H Neutrophils % 82.3 D Lymphocytes % 8.1 D Monocytes % 9.0 Eosinophils % 0.0 D Basophils % 0.6 Nucleated RBC % 0 Sodium 141 Potassium 3.5 Chloride 105 Carbon Dioxide 26 Anion Gap 9 BUN 16.1 Creatinine 1.0 Est GFR (CKD-EPI)AfAm 63.82 Est GFR (CKD-EPI)NonAf 55.07 POC Glucometer Random Glucose 122 H Calcium 8.5 Phosphorus Magnesium 2.2 Total Bilirubin 0.6 AST 24 ALT 24 Alkaline Phosphatase 99 Creatine Kinase 272 H Creatine Kinase Index 0.9 CK-MB (CK-2) 2.5 Troponin I < 0.02 B-Natriuretic Peptide 1265.7 H Total Protein 6.2 L Albumin 3.2 L Urine Color Urine Appearance Urine pH Ur Specific [place] Urine Protein Urine Glucose (UA) Urine Ketones Urine Blood Urine Nitrite Urine Bilirubin Urine Urobilinogen Ur Leukocyte Esterase Urine WBC (Auto) Urine RBC (Auto) Urine Casts (Auto) U Epithel Cells (Auto) Urine Bacteria (Auto) COVID-19 (ATA) Not detected 05/15/20 05/16/20 05/16/20 23:35 00:00 05:40 WBC 10.7 H RBC 3.70 Hgb 11.3 Hct 34.0 MCV 92.0 MCH 30.7 MCHC 33.3 RDW 14.8 Plt Count 231 MPV 8.7 Absolute Neuts (auto) Neutrophils % Lymphocytes % Monocytes % Eosinophils % Basophils % Nucleated RBC % Sodium Potassium Chloride Carbon Dioxide Anion Gap BUN Creatinine Est GFR (CKD-EPI)AfAm Est GFR (CKD-EPI)NonAf POC Glucometer 129 Random Glucose Calcium Phosphorus Magnesium Total Bilirubin AST ALT Alkaline Phosphatase Creatine Kinase Creatine Kinase Index CK-MB (CK-2) Troponin I B-Natriuretic Peptide Total Protein Albumin Urine Color Yellow Urine Appearance Clear Urine pH 6.5 Ur Specific [place] 1.020 Urine Protein 2+ H Urine Glucose (UA) Negative Urine Ketones Negative Urine Blood 2+ H Urine Nitrite Negative Urine Bilirubin Negative Urine Urobilinogen 1.0 Ur Leukocyte Esterase 3+ H Urine WBC (Auto) 1662.8 Urine RBC (Auto) 194.7 Urine Casts (Auto) 1.54 U Epithel Cells (Auto) 15.6 Urine Bacteria (Auto) 7736.2 COVID-19 (ATA) 05/16/20 05:40 WBC RBC Hgb Hct MCV MCH MCHC RDW Plt Count MPV Absolute Neuts (auto) Neutrophils % Lymphocytes % Monocytes % Eosinophils % Basophils % Nucleated RBC % Sodium 138 Potassium 3.1 L Chloride 102 Carbon Dioxide 28 Anion Gap 9 BUN 14.1 Creatinine 1.0 Est GFR (CKD-EPI)AfAm 63.82 Est GFR (CKD-EPI)NonAf 55.07 POC Glucometer Random Glucose 120 H Calcium 8.4 L Phosphorus 2.6 Magnesium 2.1 Total Bilirubin 0.5 AST 24 ALT 24 Alkaline Phosphatase 101 Creatine Kinase Creatine Kinase Index CK-MB (CK-2) Troponin I B-Natriuretic Peptide Total Protein 6.0 L Albumin 3.0 L Urine Color Urine Appearance Urine pH Ur Specific [place] Urine Protein Urine Glucose (UA) Urine Ketones Urine Blood Urine Nitrite Urine Bilirubin Urine Urobilinogen Ur Leukocyte Esterase Urine WBC (Auto) Urine RBC (Auto) Urine Casts (Auto) U Epithel Cells (Auto) Urine Bacteria (Auto) COVID-19 (ATA) Active Medications Generic Name Dose Route Start Last Admin Trade Name Freq PRN Reason Stop Dose Admin Acetaminophen 650 mg 05/16/20 03:21 05/16/20 04:00 Tylenol - PO 650 mg Q6H PRN Administration FEVER Albuterol Sulfate 2 puff 05/16/20 09:57 05/16/20 10:03 Ventolin Hfa Inhaler - IH 2 inh Q4H PRN Administration SHORT OF BREATH/WHEEZING Enoxaparin Sodium 40 mg 05/16/20 10:00 05/16/20 10:05 Lovenox - SQ 40 mg BID BOBBY Administration Furosemide 20 mg 05/16/20 10:00 05/16/20 10:05 Lasix Injection - IVPUSH 20 mg DAILY BOBBY Administration Azithromycin 500 mg in 250 mls @ 250 mls/hr 05/16/20 10:41 Zithromax 500mg Ivpb (Pre-Docked) IVPB 05/17/20 09:59 DAILY BOBBY Non-Formulary Medication 1,200 mg 05/16/20 22:00 Gabapentin [Gralise] PO HS BOBBY Non-Formulary Medication 1,200 mg 05/16/20 22:00 Gabapentin Enacarbil [Horizant] PO HS BOBBY ASSESSMENT/PLAN: Acute shortness of breath Likely in the setting of acute onset CHF. pending echo COPD history rule out Covid 19 Chest xray with cardiomegaly and increased interstitial markings with pulmonary vascular congestion Oxygen saturation stable on 2 liters, will need pre and post troponin is negative. ECHO pending Strict I/O while on lasix 40mg IV Restrict dietary salt intake, monitor renal function, monitor and replete electrolytes Daily weight. cardiology consulted and following UTI Patient with symptoms of urinary frequency, urgency UA shows + 3 leuk est, +2 protein, +2 blood given ceftriaxone, start on ceftin 500mg bid UC ordered but not yet collected Hypo albumin Dietary consult Morbid obesity dietary consult outpatient follow up with PCP Visit type - Emergency Visit Emergency Visit: Yes ED Registration Date: 05/15/20 Care time: The patient presented to the Emergency Department on the above date and was hospitalized for further evaluation of their emergent condition. - New Patient This patient is new to me today: Yes Date on this admission: 05/16/20 - Critical Care Critical Care patient: No - Discharge Referral Referred to [facility] Med P.C.: No - Medication Review Med list reviewed for High Risk Meds patients 65 and older: Yes
[2020-05-16] MEDS ORDERED: POTASSIUM CHLORIDE TABS 20 MEQ TABLET.ER (FP) PO ONE (17:25)
[2020-05-16] MEDS ORDERED: PT OWN MED DRAWER 7, Y5N ONE (19:46)
[2020-05-16] MEDS: GABAPENTIN ENACARBIL 1200 MG PO SCH ×2 (19:49→21:11)
[2020-05-16] MEDS: CEFUROXIME AXETIL 500 MG TABLET PO SCH (21:11)
[2020-05-16] MEDS ORDERED: GABAPENTIN 300 MG CAPSULE PO SCH (22:00)
[2020-05-16] MEDS ORDERED: GABAPENTIN 1200 MG PO SCH (22:00)
[2020-05-17] MEDS: ACETAMINOPHEN 325 MG TABLET (FP) PO PRN (03:47)
[2020-05-17 08:56] LABS: BASO % 0.9 % (0-2.0); EOS % 0.7 % (0-4.5); HEMATOCRIT 35.6 % (32.4-45.2); HEMOGLOBIN 11.5 GM/dL (10.7-15.3); LYMPH % 16.6 % (8-40); MCH 29.5 pg (25.7-33.7); MCHC 32.4 g/dl (32.0-36.0); MEAN CELL VOLUME 91.2 fl (80-96); MEAN PLT VOLUME 8.6 fl (7.5-11.1); MONO % 15.7 % (3.8-10.2); NEUT % 66.1 % (42.8-82.8); PLATELET COUNT 263 K/MM3 (134-434); RDW 14.6 % (11.6-15.6); WHITE BLOOD COUNT 8.6 K/mm3 (4.0-10.0)
[2020-05-17 09:22] LABS: ALBUMIN 2.8 g/dl (3.4-5.0); BILIRUBIN,TOTAL 0.4 mg/dL (0.2-1); BLOOD UREA NITROGEN 15.7 mg/dL (7-18); CALCIUM 8.4 mg/dL (8.5-10.1); CREATININE 0.9 mg/dL (0.55-1.3); MAGNESIUM 2.3 mg/dL (1.8-2.4); POTASSIUM 3.2 mmol/L (3.5-5.1)
[2020-05-17] MEDS ORDERED: PT OWN MED DRAWER 7, Y5N ONE ×3 (11:17→20:58)
[2020-05-17] MEDS: CEFUROXIME AXETIL 500 MG TABLET PO SCH ×2 (11:21→21:15)
[2020-05-17] MEDS: ENOXAPARIN NA (PORCINE) 40 MG/0.4 ML DISP.SYRIN SQ SCH ×2 (11:21→21:17)
[2020-05-17] MEDS: FUROSEMIDE 40 MG/4 ML INJECTABLE VIAL IVPUSH SCH (11:21)
--- NOTE | 2020-05-17 11:33 | ECHO ---
Name: XIOMARAGEO Exam:Adult Echocardiogram Study Date: 05/17/2020 10:27 AM Age: 74 yrs Reason For Study: LV Function Height: 62 in Weight: 270 lb BSA: 2.2 m2 MMode/2D Measurements & Calculations IVSd: 0.75 cm Ao root diam: 3.1 cm LVIDd: 5.1 cm LA dimension: 2.8 cm LVIDs: 2.9 cm LVPWd: 0.82 cm EDV(Teich): 123.5 ml LVOT diam: 2.0 cm ESV(Teich): 31.3 ml LAV (MOD-bp): 39.8 ml Doppler Measurements & Calculations MV E max kenny: 87.0 cm/sec Ao V2 max: 153.7 cm/sec MV A max kenny: 83.1 cm/sec Ao max P.4 mmHg MV E/A: 1.0 MV dec time: 0.17 sec YOSELYN(V,D): 1.4 cm2 LV V1 max P.1 mmHg TR max kenny: 284.0 cm/sec LV V1 max: 71.7 cm/sec TR max P.3 mmHg PA V2 max: 98.6 cm/sec Med Peak E' Kenny: 7.7 cm/sec PA max P.9 mmHg Med E/e': 11.3 Lat Peak E' Kenny: 9.8 cm/sec Lat E/e': 8.9 PI Vmax: 181.5 cm/sec Procedure A complete two-dimensional transthoracic echocardiogram was performed (2D, M-mode, Doppler and color flow Doppler). Left Ventricle The left ventricular size, thickness and function are normal. Ejection Fraction = 55%. E/A reversal c onsistent with but not diagnostic of poor LV compliance. The left ventricular wall motion is normal. Right Ventricle The right ventricle is normal in size and function. Atria Normal left and right atrial size and function. Mitral Valve The mitral valve is normal in structure and function. There is mild mitral annular calcification. The re is no mitral regurgitation noted. Tricuspid Valve The tricuspid valve is normal in structure and function. There is mild tricuspid regurgitation. Right ventricular systolic pressure is elevated at 37 mmhg. Aortic Valve There is mild aortic valve thickening. No hemodynamically significant valvular aortic stenosis. Pulmonic Valve The pulmonic valve is normal in structure and function. Great Vessels The aortic root is normal size. Pericardium/Pleura There is no pericardial effusion. There is no pleural effusion. Interpretation Summary The left ventricular size, thickness and function are normal Ejection Fraction = 55%. There is mild mitral annular calcification. There is mild tricuspid regurgitation. Right ventricular systolic pressure is elevated at 37 mmhg. There is mild aortic valve thickening. MD Les Hernandez 05/17/2020 11:33 AM
--- NOTE | 2020-05-17 12:19 | PN ---
Progress Note, Physician History of Present Illness: Ms. Shoemaker is a 74 yr old white woman with PMH COPD not on home O2, morbid obesity, chronic bilateral LE lymphedema/cellulitis, peripheral neuropathy on gabapentin, sent from PMD at [facility] for evaluation of PNA with WBC 14 and hypoxia. Two days ago patient reports that she was having urinary frequency and was going to the bathroom to urinate every few hours overnight. Symptoms resolved the next day, does not take any diuretics. Today patient was having SOB with exertion. Patient denies any chest pain, SOB, palpitations, fever, chills, nausea, vomiting, diarrhea. Has leg swelling but at baseline. No known covid contacts or sick contacts. No coughing. Patient denies any lung disease. Evaluated by [facility] cardiology for ECHO, no heart disease noted. Pt smoked cigarettes for many years (1/2 ppd; quit 3 yrs ago). - Current Medication List Current Medications: Active Medications Acetaminophen (Tylenol -) 650 mg PO Q6H PRN PRN Reason: FEVER Last Admin: 05/17/20 03:47 Dose: 650 mg Documented by: Albuterol Sulfate (Ventolin Hfa Inhaler -) 2 puff IH Q4H PRN PRN Reason: SHORT OF BREATH/WHEEZING Last Admin: 05/16/20 10:03 Dose: 2 inh Documented by: Atorvastatin Calcium (Lipitor -) 20 mg PO [facility] Cefuroxime Axetil (Ceftin -) 500 mg PO BID [facility] Last Admin: 05/17/20 11:21 Dose: 500 mg Documented by: Enoxaparin Sodium (Lovenox -) 40 mg SQ BID [facility] Last Admin: 05/17/20 11:21 Dose: 40 mg Documented by: Furosemide (Lasix Injection -) 20 mg IVPUSH DAILY [facility] Last Admin: 05/17/20 11:21 Dose: 20 mg Documented by: Non-Formulary Medication (Gabapentin Enacarbil [Horizant]) 1,200 mg PO DAILY@1999 [facility] Last Admin: 05/16/20 21:11 Dose: 1,200 mg Documented by: - Objective Vital Signs: Vital Signs Temperature 99.3 F 05/17/20 06:12 Pulse Rate 78 05/17/20 06:12 Respiratory Rate 20 05/17/20 06:12 Blood Pressure 119/66 05/17/20 06:12 O2 Sat by Pulse Oximetry (%) 91 L 05/17/20 06:12 Eyes: Yes: WNL, Conjunctiva Clear, EOM Intact HENT: Yes: WNL, Atraumatic, Normocephalic Neck: Yes: WNL, Supple, Trachea Midline Cardiovascular: Yes: WNL, Regular Rate and Rhythm Respiratory: Yes: WNL, Regular, CTA Bilaterally Gastrointestinal: Yes: WNL, Normal Bowel Sounds Genitourinary: Yes: WNL Musculoskeletal: Yes: WNL Extremities: Yes: WNL Edema: No Integumentary: Yes: WNL Neurological: Yes: WNL, Alert, Oriented ...Motor Strength: WNL Psychiatric: Yes: WNL Labs: CBC, BMP 05/17/20 06:50 05/17/20 06:50 Assessment/Plan Shortness of breath; PNA; leukocytosis COPD morbid obesity HTN (pt says she is on no medications for any illness at home) Hypokalemia Hx UTI EKG: NSR; ? old anterior OH ECHO nl ef and wall motions. Plan: COVID negative. Replete K+. TNI < 0.02; f/u serially. F/u lipids, TSH, HGBA1c F/u BP serially. Consider pulmonary w/u regarding COPD, long smoking hx. Pt does not want nutrition consult, saying she knows what she needs to do. Stress MIBI when stable.
--- NOTE | 2020-05-17 12:50 | EKG ---
Test Reason : Blood Pressure : / mmHG Vent. Rate : 074 BPM Atrial Rate : 074 BPM P-R Int : 158 ms QRS Dur : 090 ms QT Int : 400 ms P-R-T Axes : 071 048 023 degrees QTc Int : 444 ms NORMAL SINUS RHYTHM NONSPECIFIC ST ABNORMALITY ABNORMAL ECG WHEN COMPARED WITH ECG OF 15-MAY-2020 19:25, NO SIGNIFICANT CHANGE WAS FOUND Confirmed by Les Hernandez MD ([id number]) on 05/17/2020 12:49:57 PM Referred By: Juwan CASTELLANO Confirmed By:Les Hernandez MD
--- NOTE | 2020-05-17 14:53 | CON.PULM ---
Consult Consult Specialty:: PULM/CCM Referred by:: Hospitalist Reason for Consultation:: SOB - History of Present Illness Chief Complaint: SOB History of Present Illness: 74 F, COPD due to 1PPD smoking (quit "cold " 4 years ago), morbid obesity, chronic bilateral LE lymphedema/cellulitis, and peripheral neuropathy. Admitted via the ER due to possible PNA. Patient reports that she had UTI symptoms and when she contacted her PMD was advised to go to Urgent Care. From there she was referred to the ER. No significant respiratory symptoms. Denies significant SOB, MILLER, cough, sputum production, or hemoptysis. CT chest : small pleural effusions with associated atelectasis. - History Source History Provided By: Patient Limitations to Obtaining History: No Limitations - Past Medical History Cardio/Vascular: Yes: HTN Pulmonary: Yes: Bronchitis, COPD. No: Asthma, Cancer, O2 Dependent, Pneumonia, Previously Intubated, Pulmonary Embolus, Pulmonary Fibrosis ...LMP: 05/15/20 ...: No - Alcohol/Substance Use Hx Alcohol Use: No - Smoking History Smoking history: Former smoker Have you smoked in the past 12 months: No Aproximately how many cigarettes per day: 20 If you are a former smoker, when did you quit?: 2017 Home Medications - Allergies Allergies/Adverse Reactions: Allergies Allergy/AdvReac Type Severity Reaction Status Date / Time codeine [Codeine] AdvReac Mild GI UPSET Verified 05/15/20 18:41 - Home Medications Home Medications: Ambulatory Orders Gabapentin [Gralise] 300 mg PO HS 05/15/20 Gabapentin Enacarbil [Horizant] 1,200 mg PO HS 05/16/20 Review of Systems - Review of Systems Constitutional: reports: Malaise. denies: Chills, Fever Eyes: reports: No Symptoms HENT: reports: No Symptoms Neck: reports: No Symptoms Cardiovascular: reports: Edema, Shortness of Breath. denies: Chest Pain, Palpitations Respiratory: reports: Snoring, SOB on Exertion. denies: Cough, Hemoptysis, Orthopnea, SOB, Wheezing Gastrointestinal: reports: No Symptoms Genitourinary: reports: Burning, Dysuria, Flank Pain Breasts: reports: No Symptoms Reported Musculoskeletal: reports: No Symptoms Integumentary: reports: No Symptoms Neurological: reports: No Symptoms Endocrine: reports: No Symptoms Hematology/Lymphatic: reports: No Symptoms Psychiatric: reports: No Symptoms Physical Exam Vital Sings: Vital Signs Temperature 99.3 F 05/17/20 06:12 Pulse Rate 92 H 05/17/20 13:24 Respiratory Rate 05/17/20 06:12 Blood Pressure 119/66 05/17/20 06:12 O2 Sat by Pulse Oximetry (%) 93 L 05/17/20 13:24 Constitutional: Yes: No Distress, Calm, Obese Eyes: Yes: Conjunctiva Clear, EOM Intact HENT: Yes: Atraumatic, Normocephalic Neck: Yes: Supple, Trachea Midline Cardiovascular: Yes: Regular Rate and Rhythm Respiratory: Yes: Diminished. No: Accessory Muscle Use, Cough, Rales, Rhonchi, SOB, SOB on Exertion, Stridor, Tachypnea, Wheezes ...Inspection: Yes: WNL ...Clubbing: No Gastrointestinal: Yes: Normal Bowel Sounds, Soft, Abdomen, Obese Renal/: Yes: WNL Musculoskeletal: Yes: WNL Extremities: Yes: WNL Edema: Yes Peripheral Pulses WNL: Yes Integumentary: Yes: WNL Neurological: Yes: WNL, Alert, Oriented ...Motor Strength: WNL Psychiatric: Yes: WNL, Alert, Oriented Labs: CBC, BMP 05/17/20 06:50 05/17/20 06:50 Imaging - Results Cat Scan: Report Reviewed, Image Reviewed Problem List - Problems (1) COPD (chronic obstructive pulmonary disease) Code(s): J44.9 - CHRONIC OBSTRUCTIVE PULMONARY DISEASE, UNSPECIFIED (2) CHF (congestive heart failure) Code(s): I50.9 - HEART FAILURE, UNSPECIFIED Qualifiers: Heart failure type: unspecified Heart failure chronicity: acute Qualified Code(s): I50.9 - Heart failure, unspecified (3) SOB (shortness of breath) Code(s): R06.02 - SHORTNESS OF BREATH (4) Dyspnea on exertion Code(s): R06.09 - OTHER FORMS OF DYSPNEA Assessment/Plan IMP: Do not suspect PNA PLAN: Lasix Low threshold to stop ABX unless for other infectious process No smoking Outpatient PFTs Sleep screen Daily weights Supplemental O2 as needed Check Pre and Post ambulation saturation Will follow Thank you. Dr Avalos
--- NOTE | 2020-05-17 14:58 | PN ---
KENNETH Screen - KENNETH History Previously diagnosed with Sleep Apnea: No If Yes, currently using CPAP to treat your KENNETH: No - SNORING Do you snore loudly (enough to be heard thru closed doors)?: Yes - TIRED Do you often feel tired, fatigued, or sleepy during daytime?: Yes - OBSERVED Has anyone observed you stop breathing during your sleep?: Yes - BLOOD PRESSURE Do you have or are being treated for high blood pressure?: No - BMI Answer Y if weight exceeds amount listed for your height: Yes .: HEIGHT & WEIGHT (lbs): 4'10" 167lbs; 411" 175 lbs; 5'0" 179lbs;. 5'1" 185lbs; 5'2" 191lbs; 5'3" 197lbs;. 5'4" 204lbs; 5'5" 210lbs; 5'6" 216lbs;. 5'7" 223lbs; 5'8" 230lbs; 59" 237lbs;. 510" 243lbs; 11" 250lbs; 6' 258lbs;. 6'1" 265lbs; 6'2" 272lbs; 6'3" 279lbs;. 6'4" 287lbs; 6'5" 295lbs - AGE Is your age over 50 yrs old?: Yes - NECK CIRCUMFERENCE Neck Circumference 40cm: Yes - GENDER Male: No - SCORE Total Score: 6 Score Interpretation: High Risk of KENNETH .: Interpretation: Score 0-2: Low Risk KENNETH. Score 3-4: Intermediate Risk KENNETH. Score 5-8: High Risk KENNETH Problem List - Problems (1) COPD (chronic obstructive pulmonary disease) Code(s): J44.9 - CHRONIC OBSTRUCTIVE PULMONARY DISEASE, UNSPECIFIED (2) CHF (congestive heart failure) Code(s): I50.9 - HEART FAILURE, UNSPECIFIED Qualifiers: Heart failure type: unspecified Heart failure chronicity: acute Qualified Code(s): I50.9 - Heart failure, unspecified (3) SOB (shortness of breath) Code(s): R06.02 - SHORTNESS OF BREATH (4) Dyspnea on exertion Code(s): R06.09 - OTHER FORMS OF DYSPNEA
--- NOTE | 2020-05-17 17:18 | PN ---
Physical Exam: SUBJECTIVE: Patient seen and examined OBJECTIVE: Patient is is a 74 year old female with a significant past medical history of COPD (not on home O2) chronic lymphedema, peripheral neuropathy. Patien sent by PCP to [facility] for evaluation of hypoxia. She c/o shortness of breath on exertion x 2 days duration, was of gradual onset but later progressed to orthopnea Patient denies any chest pain, SOB, palpitations, fever, chills, nausea, vomiting, diarrhea. She is also experiencing urinary frequency, urgency and incontinence. Had 2 episodes of frequency+ urgency, UA +. UC pending She denies hx of CHF or home use oxygen therapy. Vital Signs Period Temp Pulse Resp BP Sys/Sims Pulse Ox Last 24 Hr 98.6 F-99.4 F 69-92 20-20 117-144/62-71 91-96 GENERAL: The patient is awake, alert, and fully oriented, in no acute distress. HEAD: Normal with no signs of trauma. EYES: PERRL, extraocular movements intact, sclera anicteric, conjunctiva clear. No ptosis. ENT: Ears normal, nares patent, oropharynx clear without exudates NECK: Trachea midline, full range of motion, supple. LUNGS: Breath sounds equal, clear to auscultation bilaterally HEART: Regular rate and rhythm, ABDOMEN: Soft, nontender, nondistended, normoactive bowel sounds EXTREMITIES: +2 edema bilaterally LE NEUROLOGICAL: Normal speech, gait not observed. Laboratory Results - last 24 hr 05/16/20 05/17/20 05/17/20 05:40 06:50 06:50 WBC 8.6 RBC 3.90 Hgb 11.5 Hct 35.6 MCV 91.2 MCH 29.5 MCHC 32.4 RDW 14.6 Plt Count 263 MPV 8.6 Absolute Neuts (auto) 5.7 Neutrophils % 66.1 Lymphocytes % 16.6 D Monocytes % 15.7 H Eosinophils % 0.7 D Basophils % 0.9 Nucleated RBC % 0 Sodium 138 140 Potassium 3.1 L 3.2 L Chloride 102 100 Carbon Dioxide 28 28 Anion Gap 9 11 BUN 14.1 15.7 Creatinine 1.0 0.9 Est GFR (CKD-EPI)AfAm 63.82 72.49 Est GFR (CKD-EPI)NonAf 55.07 62.55 Random Glucose 120 H 98 Hemoglobin A1c % Calcium 8.4 L 8.4 L Phosphorus 2.6 Magnesium 2.1 2.3 Total Bilirubin 0.5 0.4 AST 24 44 H ALT 24 38 Alkaline Phosphatase 101 96 Total Protein 6.0 L 6.0 L Albumin 3.0 L 2.8 L Triglycerides 170 H Cholesterol 192 Total LDL Cholesterol 123 H HDL Cholesterol 37 L TSH 1.27 05/17/20 06:50 WBC RBC Hgb Hct MCV MCH MCHC RDW Plt Count MPV Absolute Neuts (auto) Neutrophils % Lymphocytes % Monocytes % Eosinophils % Basophils % Nucleated RBC % Sodium Potassium Chloride Carbon Dioxide Anion Gap BUN Creatinine Est GFR (CKD-EPI)AfAm Est GFR (CKD-EPI)NonAf Random Glucose Hemoglobin A1c % 6.2 Calcium Phosphorus Magnesium Total Bilirubin AST ALT Alkaline Phosphatase Total Protein Albumin Triglycerides Cholesterol Total LDL Cholesterol HDL Cholesterol TSH Active Medications Generic Name Dose Route Start Last Admin Trade Name Freq PRN Reason Stop Dose Admin Acetaminophen 650 mg 05/16/20 03:21 05/17/20 03:47 Tylenol - PO 650 mg Q6H PRN Administration FEVER Albuterol Sulfate 2 puff 05/16/20 09:57 05/16/20 10:03 Ventolin Hfa Inhaler - IH 2 inh Q4H PRN Administration SHORT OF BREATH/WHEEZING Atorvastatin Calcium 20 mg 05/17/20 22:00 Lipitor - PO HS [facility] Cefuroxime Axetil 500 mg 05/16/20 22:00 05/17/20 11:21 Ceftin - PO 500 mg BID [facility] Administration Enoxaparin Sodium 40 mg 05/16/20 10:00 05/17/20 11:21 Lovenox - SQ 40 mg BID [facility] Administration Furosemide 20 mg 05/16/20 10:00 05/17/20 11:21 Lasix Injection - IVPUSH 20 mg DAILY [facility] Administration Non-Formulary Medication 1,200 mg 05/16/20 22:00 05/16/20 21:11 Gabapentin Enacarbil [Horizant] PO 1,200 mg DAILY@1999 [facility] Administration ASSESSMENT/PLAN: Acute shortness of breath Likely in the setting of acute onset CHF and underlying COPD. Echo 05/16: ef 55%, mild tr, right ventriclar systolic pressure elevated, mild aortic valve thickening. negative for covid 19 Chest xray with cardiomegaly and increased interstitial markings with pulmonary vascular congestion Oxygen saturation stable on 2 liters, pre and post shows not need for home oxygen troponin is negative. Strict I/O while on lasix 40mg IV Restrict dietary salt intake, monitor renal function, monitor and replete electrolytes Daily weights cardiology consulted and following, recommend stress test UTI Patient with symptoms of urinary frequency, urgency UA shows + 3 leuk est, +2 protein, +2 blood given ceftriaxone, start on ceftin 500mg bid UC ordered and pending Hypo albumin Dietary consult Morbid obesity dietary consult outpatient follow up with PCP Problem List - Problems (1) CHF (congestive heart failure) Code(s): I50.9 - HEART FAILURE, UNSPECIFIED Qualifiers: Heart failure type: unspecified Heart failure chronicity: acute Qualified Code(s): I50.9 - Heart failure, unspecified (2) COPD (chronic obstructive pulmonary disease) Code(s): J44.9 - CHRONIC OBSTRUCTIVE PULMONARY DISEASE, UNSPECIFIED (3) SOB (shortness of breath) Code(s): R06.02 - SHORTNESS OF BREATH (4) Dyspnea on exertion Code(s): R06.09 - OTHER FORMS OF DYSPNEA Visit type - Emergency Visit Emergency Visit: Yes ED Registration Date: 05/15/20 Care time: The patient presented to the Emergency Department on the above date and was hospitalized for further evaluation of their emergent condition. - New Patient This patient is new to me today: No - Critical Care Critical Care patient: No - Discharge Referral Referred to [facility] Med P.C.: No - Medication Review Med list reviewed for High Risk Meds patients 65 and older: Yes
[2020-05-17] MEDS: GABAPENTIN ENACARBIL 1200 MG PO SCH (21:16)
[2020-05-17] MEDS ORDERED: ATORVASTATIN CA 20 MG TABLET (FP) PO SCH (22:00)
[2020-05-17] MEDS ORDERED: MELATONIN 5 MG TABLETS PO PRN (22:15)
[2020-05-18] MEDS ORDERED: PT OWN MED DRAWER 7, Y5N ONE ×2 (05:38→14:22)
[2020-05-18 08:58] LABS: BASO % 0.7 % (0-2.0); EOS % 1.6 % (0-4.5); HEMATOCRIT 37.3 % (32.4-45.2); HEMOGLOBIN 12.2 GM/dL (10.7-15.3); LYMPH % 19.5 % (8-40); MCH 30.2 pg (25.7-33.7); MCHC 32.7 g/dl (32.0-36.0); MEAN CELL VOLUME 92.2 fl (80-96); MEAN PLT VOLUME 8.2 fl (7.5-11.1); MONO % 19.2 % (3.8-10.2); PLATELET COUNT 248 K/MM3 (134-434); RBC 4.05 M/mm3 (3.60-5.2); RDW 14.9 % (11.6-15.6); WHITE BLOOD COUNT 6.9 K/mm3 (4.0-10.0)
[2020-05-18 09:24] LABS: ALBUMIN 2.8 g/dl (3.4-5.0); BILIRUBIN,TOTAL 0.3 mg/dL (0.2-1); BLOOD UREA NITROGEN 16.1 mg/dL (7-18); CALCIUM 8.5 mg/dL (8.5-10.1); CREATININE 0.9 mg/dL (0.55-1.3); MAGNESIUM 2.7 mg/dL (1.8-2.4); TOT PROT 6.1 g/dl (6.4-8.2)
[2020-05-18 10:15] VITALS: BP 107/60; PULSE 70; TEMP 98.6
[2020-05-18] MEDS ORDERED: REGADENOSON 0.4 MG/5 ML PRE-FILLED SYRINGE IVPUSH ONE ×2 (11:30→13:04)
[2020-05-18] MEDS: ENOXAPARIN NA (PORCINE) 40 MG/0.4 ML DISP.SYRIN SQ SCH (14:25)
[2020-05-18] MEDS: FUROSEMIDE 40 MG/4 ML INJECTABLE VIAL IVPUSH SCH (14:25)
[2020-05-18] MEDS: CEFUROXIME AXETIL 500 MG TABLET PO SCH (14:25)
--- NOTE | 2020-05-18 14:33 | PN ---
Progress Note (short form) - Note Progress Note: OOB to chair. Feels well. Lowest O2 saturation on RA was 93% post ambulation. Intake & Output 05/15/20 05/16/20 05/17/20 05/18/20 23:59 23:59 23:59 23:59 Intake Total 550 465 Output Total 800 Balance -250 465 Weight 270 lb 271 lb 3 oz 266 lb 261 lb 11.2 oz Last Vital Signs Temp Pulse Resp BP Pulse Ox 98.6 F 70 18 107/60 92 L 05/18/20 10:10 05/18/20 10:10 05/18/20 10:10 05/18/20 10:10 05/18/20 10:10 Active Medications Acetaminophen (Tylenol -) 650 mg PO Q6H PRN PRN Reason: FEVER Last Admin: 05/17/20 03:47 Dose: 650 mg Documented by: Albuterol Sulfate (Ventolin Hfa Inhaler -) 2 puff IH Q4H PRN PRN Reason: SHORT OF BREATH/WHEEZING Last Admin: 05/16/20 10:03 Dose: 2 inh Documented by: Atorvastatin Calcium (Lipitor -) 20 mg PO HS [facility] Last Admin: 05/17/20 21:16 Dose: Not Given Documented by: Cefuroxime Axetil (Ceftin -) 500 mg PO BID [facility] Last Admin: 05/18/20 14:25 Dose: 500 mg Documented by: Enoxaparin Sodium (Lovenox -) 40 mg SQ BID [facility] Last Admin: 05/18/20 14:25 Dose: 40 mg Documented by: Furosemide (Lasix Injection -) 20 mg IVPUSH DAILY [facility] Last Admin: 05/18/20 14:25 Dose: 20 mg Documented by: Melatonin (Melatonin) 5 mg PO HS PRN PRN Reason: INSOMNIA Last Admin: 05/17/20 23:34 Dose: 5 mg Documented by: Non-Formulary Medication (Gabapentin Enacarbil [Horizant]) 1,200 mg PO DAILY@1999 [facility] Last Admin: 05/17/20 21:16 Dose: 1,200 mg Documented by: Constitutional: Yes: No Distress, Calm, Obese Eyes: Yes: Conjunctiva Clear, EOM Intact HENT: Yes: Atraumatic, Normocephalic Neck: Yes: Supple, Trachea Midline Cardiovascular: Yes: Regular Rate and Rhythm Respiratory: Yes: Diminished. No: Accessory Muscle Use, Cough, Rales, Rhonchi, SOB, SOB on Exertion, Stridor, Tachypnea, Wheezes ...Inspection: Yes: WNL ...Clubbing: No Gastrointestinal: Yes: Normal Bowel Sounds, Soft, Abdomen, Obese Renal/: Yes: WNL Musculoskeletal: Yes: WNL Extremities: Yes: WNL Edema: Yes Peripheral Pulses WNL: Yes Integumentary: Yes: WNL Neurological: Yes: WNL, Alert, Oriented ...Motor Strength: WNL Psychiatric: Yes: WNL, Alert, Oriented Labs: Laboratory Results - last 24 hr 05/18/20 05/18/20 08:17 08:17 WBC 6.9 RBC 4.05 Hgb 12.2 Hct 37.3 MCV 92.2 MCH 30.2 MCHC 32.7 RDW 14.9 Plt Count 248 MPV 8.2 Absolute Neuts (auto) 4.1 Neutrophils % 59.0 Lymphocytes % 19.5 Monocytes % 19.2 H Eosinophils % 1.6 D Basophils % 0.7 Nucleated RBC % 0 Sodium 141 Potassium 3.0 L Chloride 100 Carbon Dioxide 31 Anion Gap 9 BUN 16.1 Creatinine 0.9 Est GFR (CKD-EPI)AfAm 72.49 Est GFR (CKD-EPI)NonAf 62.55 Random Glucose 104 Calcium 8.5 Magnesium 2.7 H Total Bilirubin 0.3 AST 32 ALT 42 Alkaline Phosphatase 101 Total Protein 6.1 L Albumin 2.8 L Imaging - Results Cat Scan: Report Reviewed, Image Reviewed Problem List - Problems (1) COPD (chronic obstructive pulmonary disease) Code(s): J44.9 - CHRONIC OBSTRUCTIVE PULMONARY DISEASE, UNSPECIFIED (2) CHF (congestive heart failure) Code(s): I50.9 - HEART FAILURE, UNSPECIFIED Qualifiers: Heart failure type: unspecified Heart failure chronicity: acute Qualified Code(s): I50.9 - Heart failure, unspecified (3) SOB (shortness of breath) Code(s): R06.02 - SHORTNESS OF BREATH (4) Dyspnea on exertion Code(s): R06.09 - OTHER FORMS OF DYSPNEA Assessment/Plan IMP: Do not suspect PNA R/O OSAS PLAN: Lasix Monitor of ABX No smoking Outpatient PFTs Sleep screen There is no Pulmonary contraindication for DC planning Dr Avalos Problem List - Problems (1) COPD (chronic obstructive pulmonary disease) Code(s): J44.9 - CHRONIC OBSTRUCTIVE PULMONARY DISEASE, UNSPECIFIED (2) CHF (congestive heart failure) Code(s): I50.9 - HEART FAILURE, UNSPECIFIED Qualifiers: Heart failure type: unspecified Heart failure chronicity: acute Qualified Code(s): I50.9 - Heart failure, unspecified (3) SOB (shortness of breath) Code(s): R06.02 - SHORTNESS OF BREATH (4) Dyspnea on exertion Code(s): R06.09 - OTHER FORMS OF DYSPNEA
[2020-05-18 14:51] VITALS: BMI 47.7
--- NOTE | 2020-05-18 14:57 | PN ---
Progress Note, Physician Chief Complaint: Pt AO&x3; OOB in chair; asymptomatic; motivated to change diet, lose weight. History of Present Illness: Ms. Shoemaker is a 74 yr old white woman with PMH COPD--former smoker, not on home O2, morbid obesity, chronic bilateral LE lymphedema/cellulitis, peripheral neuropathy on gabapentin, sent from PMD at [facility] for evaluation of PNA with WBC 14 and hypoxia. Two days ago patient reports that she was having urinary frequency and was going to the bathroom to urinate every few hours overnight. Symptoms resolved the next day, does not take any diuretics. Today patient was having SOB with exertion. Patient denies any chest pain, SOB, palpitations, fever, chills, nausea, v omiting, diarrhea. Has leg swelling but at baseline. No known covid contacts or sick contacts. No coughing. Patient denies any lung disease. Evaluated by [facility] cardiology for ECHO, no heart disease noted. Pt smoked cigarettes for many years (1/2 ppd; quit 3 yrs ago). - Current Medication List Current Medications: Active Medications Acetaminophen (Tylenol -) 650 mg PO Q6H PRN PRN Reason: FEVER Last Admin: 05/17/20 03:47 Dose: 650 mg Documented by: Albuterol Sulfate (Ventolin Hfa Inhaler -) 2 puff IH Q4H PRN PRN Reason: SHORT OF BREATH/WHEEZING Last Admin: 05/16/20 10:03 Dose: 2 inh Documented by: Atorvastatin Calcium (Lipitor -) 20 mg PO HS [facility] Last Admin: 05/17/20 21:16 Dose: Not Given Documented by: Cefuroxime Axetil (Ceftin -) 500 mg PO BID [facility] Last Admin: 05/18/20 14:25 Dose: 500 mg Documented by: Enoxaparin Sodium (Lovenox -) 40 mg SQ BID [facility] Last Admin: 05/18/20 14:25 Dose: 40 mg Documented by: Furosemide (Lasix Injection -) 20 mg IVPUSH DAILY [facility] Last Admin: 05/18/20 14:25 Dose: 20 mg Documented by: Melatonin (Melatonin) 5 mg PO HS PRN PRN Reason: INSOMNIA Last Admin: 05/17/20 23:34 Dose: 5 mg Documented by: Non-Formulary Medication (Gabapentin Enacarbil [Horizant]) 1,200 mg PO DAILY@1999 [facility] Last Admin: 05/17/20 21:16 Dose: 1,200 mg Documented by: - Objective Vital Signs: Vital Signs Temperature 98.6 F 05/18/20 10:10 Pulse Rate 70 05/18/20 10:10 Respiratory Rate 18 05/18/20 10:10 Blood Pressure 107/60 05/18/20 10:10 O2 Sat by Pulse Oximetry (%) 92 L 05/18/20 10:10 Labs: CBC, BMP 05/18/20 08:17 05/18/20 08:17 Assessment/Plan Shortness of breath; PNA; leukocytosis COPD morbid obesity HTN (pt says she is on no medications for any illness at home) Hypokalemia Hx UTI EKG: NSR; ? old anterior MA Plan: Stress Lexiscan MIBI: negative for ischemia. COVID negative. ECHO: normal LVEF; abnormal diastolic compliance. Replete K+; when discharged, continue small dose potassium if furosemide is continued, and f/u electrolytes carefully. TNI < 0.02 F/u lipids, TSH, HGBA1c F/u BP serially. Consider pulmonary w/u regarding COPD, long smoking hx. Pt does not want nutrition consult, saying she knows what she needs to do. She is motivated to lose, and will f/u with her PMD.
--- NOTE | 2020-05-18 16:16 | DS ---
Physical Exam: SUBJECTIVE: Patient seen and examined at the bedside. She completed stress test and tells me she feels well. denies any shortness of breath or chest pain. She is interested in weight loss. She agrees to follow up with her PCP as an outpatient. OBJECTIVE: Patient is is a 74 year old female with a significant past medical history of COPD (not on home O2) chronic lymphedema, peripheral neuropathy. Patient sent by PCP to [facility] for evaluation of hypoxia. She c/o shortness of breath on exertion x 2 days duration, was of gradual onset but later progressed to orthopnea. Patient was diuresed with Lasix 20mg IV daily and transitioned to oral lasix 20mg daily. Stress test done today negative for ischemia. A pre and post does not show any need for home oxygen. Patient has been cleared by cardiology and pulmonary for discharge home with outpatient follow up. Patient agrees to follow up. HOSPITAL PROBLEM LIST - SEE BELOW: Period Temp Pulse Resp BP Sys/Sims Pulse Ox Last 24 Hr 98.6 F-99.0 F 61-74 18-20 107-138/60-72 91-93 PHYSICAL EXAM GENERAL: The patient is awake, alert, and fully oriented, in no acute distress. HEAD: Normal with no signs of trauma. EYES: PERRL, extraocular movements intact, sclera anicteric, conjunctiva clear. ENT: Ears normal, nares patent, oropharynx clear without exudates, moist mucous membranes. NECK: Trachea midline, full range of motion, supple. LUNGS: Breath sounds equal, clear to auscultation bilaterally, no wheezes, no crackles, no accessory muscle use. HEART: Regular rate and rhythm, S1, S2 without murmur, rub or gallop. ABDOMEN: Soft, nontender, nondistended, normoactive bowel sounds, no guarding, no rebound, no hepatosplenomegaly, no masses. EXTREMITIES: 2+ pulses, warm, well-perfused, no edema. NEUROLOGICAL: Cranial nerves II through XII grossly intact. Normal speech, gait not observed. PSYCH: Normal mood, normal affect. SKIN: Warm, dry, normal turgor, no rashes or lesions noted. LABS Laboratory Results - last 24 hr 05/18/20 05/18/20 08:17 08:17 WBC 6.9 RBC 4.05 Hgb 12.2 Hct 37.3 MCV 92.2 MCH 30.2 MCHC 32.7 RDW 14.9 Plt Count 248 MPV 8.2 Absolute Neuts (auto) 4.1 Neutrophils % 59.0 Lymphocytes % 19.5 Monocytes % 19.2 H Eosinophils % 1.6 D Basophils % 0.7 Nucleated RBC % 0 Sodium 141 Potassium 3.0 L Chloride 100 Carbon Dioxide 31 Anion Gap 9 BUN 16.1 Creatinine 0.9 Est GFR (CKD-EPI)AfAm 72.49 Est GFR (CKD-EPI)NonAf 62.55 Random Glucose 104 Calcium 8.5 Magnesium 2.7 H Total Bilirubin 0.3 AST 32 ALT 42 Alkaline Phosphatase 101 Total Protein 6.1 L Albumin 2.8 L HOSPITAL COURSE: Date of Admission:05/15/20 Date of Discharge: 05/18/20 Acute shortness of breath - resolved Echo 05/16: ef 55%, mild tr, right ventriclar systolic pressure elevated, mild aortic valve thickening. negative for covid 19 Chest xray with cardiomegaly and increased interstitial markings with pulmonary vascular congestion Oxygen saturation stable on 2 liters, pre and post shows not need for home oxygen troponin is negative. transition to lasix 40mg daily with potassium supplements Restrict dietary salt intake, monitor renal function, monitor and replete electrolytes Negative stress test, cleared by cardiology for d/c home UTI Patient with symptoms of urinary frequency, urgency UA shows + 3 leuk est, +2 protein, +2 blood given ceftriaxone, start on ceftin 500mg bid UC shows low colony count - lactose fermenting. however, UC collected after antibiotics started. continue ceftin for a total of 7 days, patient to follow up with PCP for repeat UA once antibiotics completed Hypo albumin Dietary consult Morbid obesity dietary following outpatient follow up with PCP Minutes to complete discharge: 60 Discharge Summary Problems reviewed: Yes Reason For Visit: SOB, CHF Current Active Problems CHF (congestive heart failure) (Acute) COPD (chronic obstructive pulmonary disease) (Acute) SOB (shortness of breath) (Acute) Condition: Stable - Instructions Diet, Activity, Other Instructions: Mrs Shoemaker: You were admitted to [facility] for shortness of breath. During your stay, you were evaluated by pulmonary and horse wrangler specialists. Here are our discharge instructions. Shortness of breath: Your shortness of breath is now resolved and your cardiac workup was normal. It is important that you follow up with your primary care doctor and a pulmonoloigist on discharge. We have sent you referrals. You do not qualify for home oxygen. We will be sending you home with a diuretic called Lasix, this helps your body not hold on to water and will improve your lower leg swelling. While you are on Lasix, continue Potassium 40mg once per day as Lasix can deplete your potassium. Urinary tract infection: Your urine shows that you have a urinary tract infection. We have prescribed Ceftin 500mg TWICE per day. This antibiotic was started on 05/16/2020 and you will complete it on 05/22/2020. You can take the pills with food. Please have a repeat urinalysis with your primary care doctor to assure that your infection has completely cleared. FOLLOW UPS: Please follow up with your PCP and the biomedical specialist that saw your here. Their information is enclosed. Thank you for allowing us to care for you. Referrals: Giorgio Mueller MD [Primary Care Provider] - Derrick Ram MD [Staff Physician] - Disposition: HOME - Home Medications Comprehensive Discharge Medication List: Ambulatory Orders Gabapentin [Gralise] 300 mg PO HS 05/15/20 Gabapentin Enacarbil [Horizant] 1,200 mg PO HS 05/16/20 Albuterol Sulfate Inhaler - [Ventolin HFA Inhaler -] 2 puff IH Q4H PRN #1 inhaler 05/18/20 Atorvastatin Ca [Lipitor] 20 mg PO HS #90 tablet 05/18/20 Cefuroxime Axetil [Ceftin -] 500 mg PO BID #10 tablet 05/18/20 Furosemide [Lasix -] 20 mg PO DAILY #120 tablet 05/18/20 Gabapentin [Neurontin -] 1,200 mg PO HS capsule 05/18/20 Melatonin 5 mg PO HS PRN tab 05/18/20 Problem List - Problems (1) CHF (congestive heart failure) Code(s): I50.9 - HEART FAILURE, UNSPECIFIED Qualifiers: Heart failure type: unspecified Heart failure chronicity: acute Qualified Code(s): I50.9 - Heart failure, unspecified (2) COPD (chronic obstructive pulmonary disease) Code(s): J44.9 - CHRONIC OBSTRUCTIVE PULMONARY DISEASE, UNSPECIFIED (3) SOB (shortness of breath) Code(s): R06.02 - SHORTNESS OF BREATH (4) Dyspnea on exertion Code(s): R06.09 - OTHER FORMS OF DYSPNEA This patient is new to me today: No Emergency Visit: Yes ED Registration Date: 05/15/20 Care time: The patient presented to the Emergency Department on the above date and was hospitalized for further evaluation of their emergent condition. Critical Care patient: No - Discharge Referral Referred to [facility] Med [facility] No
[2020-05-18] MEDS ORDERED: POTASSIUM CHLORIDE TABS 20 MEQ TABLET.ER (FP) PO ONE (16:19)
[2020-05-19] MEDS ORDERED: FUROSEMIDE 20 MG TABLET (FP) PO SCH (10:00)
[2020-05-19] MEDS ORDERED: POTASSIUM CHLORIDE TABS 20 MEQ TABLET.ER (FP) PO SCH (10:00)
== END 2020-05-18 18:17 | disposition home or self-care (01) | DRG 291 ==
LOC: JER 17:04 → JERBED 20:41 → J8W 05-16 06:32
PROVIDERS: ADMIT Internal Medicine; ATTEND Nurse Practitioner Family
DX: I11.0 Hypertensive heart disease with heart failure (principal); I50.31 Acute diastolic (congestive) heart failure; Z68.42 Body mass index [BMI] 45.0-49.9, adult; E46 Unspecified protein-calorie malnutrition; N39.0 Urinary tract infection, site not specified; J44.9 Chronic obstructive pulmonary disease, unspecified; Z99.81 Dependence on supplemental oxygen; E66.01 Morbid (severe) obesity due to excess calories; E78.5 Hyperlipidemia, unspecified; F41.9 Anxiety disorder, unspecified; E87.6 Hypokalemia; G62.9 Polyneuropathy, unspecified; B96.20 Unspecified Escherichia coli [E. coli] as the cause of diseases classified elsewhere; D72.829 Elevated white blood cell count, unspecified; I89.0 Lymphedema, not elsewhere classified
CPT/HCPCS: 36415; 71045-TC-FY; 71260-TC; 78452-TC; 80053; 80061; 81003; 82550; 82553; 82962; 83036; 83721; 83735; 83880; 84100; 84443; 84484; 85025; 85027; 87040; 87086; 87186; 93005; 93010; 93017; 93306-TC; 93970-TC; 94761; 97116-GP; 97161-GP; 99285-25; A9502; J2785; U0003